=== PATIENT | male | born 1970 | race Caucasian/White ===

== ENCOUNTER 2020-11-14 13:19 | Emergency (ER) | payer OTHER, SELFPAY ==
--- NOTE | 2020-11-14 13:38 | XR_ITS ---
WS: [id number] Right knee, 3 views, 11/14/2020 Clinical Data: rt knee pain Comparison: None. Findings: No fractures or dislocations are seen. There is narrowing of the medial joint compartment with adjace nt calcifications probably in the medial collateral ligament.. The patella has a small posterior supe rior spur.. The soft tissues are unremarkable. XR/XR knee RT 3V* [id number] Impression: Osteoarthritis of the medial joint compartment of the right knee.
[2020-11-14 13:57] VITALS: BP 151/88; PULSE 69; RESP 18; TEMP 36.7; O2SAT 93; BMI 31.1
--- NOTE | 2020-11-14 14:43 | W.ED.EXTPRO ---
HPI - Extremity Problem General: Chief complaint: Extremity Injury, Lower Stated complaint: r knee pain Time Seen by Provider: 11/14/20 13:34 Source: patient and family (spouse) Mode of arrival: ambulatory Limitations: no limitations History of Present Illness: HPI Narrative: Patient presents to the emergency department with complaints of right knee pain. He reports pain past 2 to 3 days. Former anterior cruciate ligament injury early . He states call Dr. Dyer this morning for an appointment with follow-up scheduled for 03/04/2021. His states he continues to limp on his right knee favoring his left knee; she reports he has pain in his left knee as well and is requesting referral to specialty. He reports weakness of the right knee, states unable to utilize knee immobilizer as it puts pressure on his left knee, which needs surgery. Reports taking ibuprofen as needed for pain. He has no new injuries or trauma. MD Complaint: extremity pain Onset (ago): day(s) (2-3) Pain Consistency: intermittent Location: right and lower extremity Quality: aching Relieving factors: immobilization and rest Exacerbating factors: range of motion and weight bearing Associated symptoms: Reports arthralgias; Deny chest pain, fever(s) or rash Review of Systems General: Reports: 10 or more systems reviewed and unremarkable except in HPI and below Const: Denies: fever(s), chills or diaphoresis Eyes: Denies: blurry vision or eye redness ENMT: Denies: throat pain, dental pain or disequilibrium Card: Denies: chest pain, palpitations or irregular heart rhythm Resp: Denies: dyspnea, productive cough, non-productive cough or wheezing GI: Denies: abdominal pain, nausea or vomiting : Denies: dysuria Musc: Reports: joint pain (rt and lt knee - here for rt knee pain, left knee pain chronic); Denies: neck pain or back pain Skin/Breast: Denies: rash or pruritus Neuro: Denies: headache(s), weakness in extremities or behavioral changes Psych: Denies: anxiety or depression Bijan/Lymph: Denies: easy bruising [facility] ED PFSH: Medical History (Updated 11/14/20 @ 14:58 by RE Martínez) Right ACL tear Physical Exam Const: COMMON NORMALS: no acute distress, patient oriented x3, healthy appearing, alert and well nourished GENERAL APPEARANCE: cooperative, comfortable, well kempt, well developed and well hydrated ORIENTATION/CONSCIOUSNESS: Yes awake, Yes oriented to person, Yes oriented to place and Yes oriented to time HENMT: COMMON NORMALS: normocephalic, atraumatic, external ears normal, Normal external nose present and moist oral mucous membranes HEAD & SCALP: normocephalic and atraumatic FACE & SINUS: normal facial exam NOSE: Normal external nose present EXTERNAL EAR: Yes external ears normal MOUTH: Normal oral and palatal mucosa present and lip normal Eye: COMMON NORMALS: Equal, round and reactive pupils present and EOMs intact bilaterally GENERAL EYE: appearance normal, both eyes and all related structures PUPIL: Yes Equal, round and reactive pupils present Neck/C-Spine: COMMON NORMALS: full ROM and no lymphadenopathy GENERAL: Yes normal visual inspection and Yes trachea midline CERVICAL SPINE: Yes cervical ROM normal Lymph: LYMPHATIC: no lymphadenopathy noted Chest: COMMONS NORMALS: normal inspection of the chest and normal palpation of entire chest wall Resp: COMMON NORMALS: normal respiratory effort, No retractions, No use of accessory muscles and clear to auscultation bilaterally EFFORT & INSPECTION: Yes able to speak in complete sentences AUSCULTATION: clear to auscultation bilaterally Cardio: COMMON NORMALS: regular rate, regular rhythm, S1 normal heart sound present, S2 normal heart sound present and Peripheral pulses 2+ throughout RATE: regular rate RHYTHM: regular rhythm HEART SOUNDS: S1 normal heart sound present and S2 normal heart sound present PERIPHERAL PULSES: Peripheral pulses 2+ throughout GI: COMMON NORMALS: Soft to palpation and non-tender INSPECTION: Yes normal to inspection PALPATION: Yes Soft to palpation : COMMON NORMALS: Yes no CVA tenderness BLADDER/KIDNEY EXAM: Yes no CVA tenderness Back/Pelvis: COMMON NORMALS: no CVA tenderness and thoracic and lumbar spine normal to inspection Extremity: COMMON NORMALS: normal to inspection, full ROM, capillary refill normal, no calf tenderness and no pedal edema GENERAL: Yes normal exam except as noted RIGHT LOWER EXTREMITY: Yes knee joint Right knee: Yes inspection (medial narrowing), Yes palpation (anterior medial tenderness), Yes ROM (Flexion/extension noted, no restriction movement) and Yes neurovascular exam (Distally intact) Neuro: COMMON NORMALS: patient oriented x3 and no focal motor deficits SENSORIUM/ORIENTATION: Yes alert, Yes oriented to person, Yes oriented to place and Yes oriented to time Psych: COMMON NORMALS: mental status grossly normal, Normal thought process present and cooperative APPEARANCE: Yes well kempt ACTIVITY/MOTOR BEHAVIOR: Yes appropriate eye contact THOUGHT PROCESS: Normal thought process present Skin: COMMON NORMALS: no rashes or lesions noted and turgor normal GENERAL SKIN EXAM: no rashes or lesions noted and turgor normal Course ED course: 50-year-old male patient presents to the emergency room due to right knee pain. Referral for MRI right knee with follow-up with orthopedic services placed to mental health social worker to assist with appointments. He reports chronic right knee pain and left knee pain for years, worsening. He denies new recent trauma or injury, has an appointment with Dr. Turpin, his primary care provider on 11/20/2020. He was placed on Celebrex, advised not to take [id number] Aleve, ibuprofen or Advil with use of Celebrex. Vital Signs: Vital signs: Vital Signs Temperature 98.1 F 11/14/20 13:57 Pulse Rate 69 11/14/20 13:57 Respiratory Rate 18 11/14/20 13:57 Blood Pressure 151/88 11/14/20 13:57 Pulse Oximetry 93 11/14/20 13:57 MDM - Extremity (Nontraumatic) Imaging Data^: Xray Ortho: Radiologist's impression: [address] [address] XRay Report Signed Patient: Dudley Burns Unit #: [id number] : 1970 Age/Sex: 50 / M ADM Date: 11/14/20 Loc: ER Room/Bed: Attending Dr: Ordering Provider/Ordering MD: Sissy Hirsch Date of Service: 11/14/20 Procedure(s): XR knee RT 3V* [id number] Accession Number(s): [id number] Report Number: [id number] WS: [id number] Right knee, 3 views, 11/14/2020 Clinical Data: rt knee pain Comparison: None. Findings: No fractures or dislocations are seen. There is narrowing of the medial joint compartment with adjacent calcifications probably in the medial collateral ligament.. The patella has a small posterior superior spur.. The soft tissues are unremarkable. XR/XR knee RT 3V* [id number] Impression: Osteoarthritis of the medial joint compartment of the right knee. Dictated By: Tammy Mcdonough MD Signed By: Tammy Mcdonough MD Signed Date/Time: 11/14/20 1357 DD/ 1355 Discharge Plan Discharge Patient Disposition: Home Clinical Impression: Chronic instability of knee, right knee Knee osteoarthritis Qualifiers: Osteoarthritis type: primary Laterality: right Qualified Code(s): M17.11 - Unilateral primary osteoarthritis, right knee Condition: Stable Prescriptions: New Celebrex 100 mg capsule 100 mg PO BID Qty: 14 RF: 0 No Action venlafaxine 75 mg capsule,extended release 24hr 75 mg PO QAM RF: 0 alprazolam 1 mg tablet 0.5 - 1 mg PO TID PRN (Reason: Anxiety) RF: 0 Tylenol Arthritis 650 mg Tablet Extended Release 1,300 mg PO PRN RF: 0 testosterone cypionate 200 mg/mL oil See Rx Instructions .ROUTE .COMPLEX RF: 0 [place] Thyroid 30 mg tablet 30 mg PO DAILY@16 RF: 0 [place] Thyroid 180 mg tablet See Rx Instructions .ROUTE .COMPLEX RF: 0 Discharge Orders: Discharge ED (Routine); Ordered 11/14/20 Ordered By: Sissy Hirsch Referrals: Nathanael Dyer MD [Primary Care Provider] - Discharge Diet: Usual diet Discharge Activity: Limit activity as instructed Patient Instructions: Osteoarthritis (ED), Knee Pain (ED), Opioid Safety Activity Restrictions/Additional Instructions: Continue follow-up with Dr. Dyer as scheduled Referral to orthopedic services laced with mental health social worker, they will contact you with a follow-up appointment Referral for MRI of the right knee has been placed, mental health social worker will contact you with an appointment Take Celebrex with food to avoid upset stomach Return to the emergency department for other worsening symptoms Coding Level of Care Code ED Shaker Screen Operator for Wilver Luna
--- NOTE | 2020-11-15 10:20 | DCPLANNER ---
environmental compliance manager had message to schedule an out patient MRI for patient. environmental compliance manager faxed signed order for MRI to centralized scheduling. environmental compliance manager will call for appointment information.
--- NOTE | 2020-11-22 08:11 | DCPLANNER ---
Patient has an out patient MRI scheduled for Wednesday, December 02, 2020 at 8:45. behavioral health case manager called the ortho clinic to schedule a follow up appointment for patient with ortho after the MRI. behavioral health case manager spoke with Fadia, gave clinic patients information. behavioral health case manager was told that patients information would be printed and reviewed. Clinic will call patient with appointment information.
--- NOTE | 2020-11-26 08:12 | DCPLANNER ---
Patient has a follow up appointment scheduled for Thursday, December 03, 2020 at 9:[address] Degroot at [facility]. Clinic will call patient with appointment information.
--- NOTE | 2020-12-11 10:43 | DCPLANNER ---
Patient had an outpatient MRI scheduled for 12.02.20 - patient attended MRI Patient had a follow up appointment scheduled for 12.03.[address] Degroot at [facility] - appointment cancelled due to patient being seen somewhere else.
== END 2020-11-14 15:15 | disposition home or self-care (01) ==
PROVIDERS: Emergency Provider Nurse Practitioner Family; PCP Family Medicine
DX: M17.11 Unilateral primary osteoarthritis, right knee (principal); M23.51 Chronic instability of knee, right knee
CPT/HCPCS: 73562; 99282

== ENCOUNTER 2020-12-02 08:37 | Outpatient (CLI) | payer OTHER, SELFPAY ==
--- NOTE | 2020-12-02 08:43 | MR_ITS ---
WS: [id number] MRI RIGHT KNEE NONCONTRAST TECHNIQUE: Axial PD, coronal PD fat sat, coronal PD, sagittal PD, and sagittal PD fat-sat images obta ined. CLINICAL INFORMATION: DERANGEMENT SYNDROME/RT KNEE PAIN COMPARISON: None. FINDINGS: Distal quadriceps and patella tendons are intact. Hypertrophic patella. Small joint effusion. High-gr claudio complete ACL tear. No normal ACL fibers visualized. Normal PCL. Mild chondromalacia patella. No s ubchondral edema. Normal patellar retinaculum. Normal medial and lateral collateral ligaments. Subcho ndral cystic change involving the medial tibial plateau. Chronic thinning of the medial and lateral meniscus. No acute appearing meniscal tears. Likely chroni c medial meniscal tear with blunting of the anterior posterior horns. Hypertrophic changes along the joint line. IMPRESSION: 1. Complete high-grade tear of the ACL. No normal fibers visualized. 2. Normal PCL. 3. Chronic thinning of the medial and lateral meniscus. Presumed chronic medial meniscal tear with b lunting of anterior and posterior horns. No acute appearing meniscal tears. 4. Subchondral cystic change and chondromalacia involving the medial joint compartment and medial ti bial plateau. 5. Small joint effusion. 6. Mild chondromalacia patella.
== END 2020-12-02 08:38 | disposition home or self-care (01) ==
LOC: RADSHAW 08:42
PROVIDERS: PCP Family Medicine; Visit Provider Nurse Practitioner Family
DX: M23.91 Unspecified internal derangement of right knee (principal); M22.41 Chondromalacia patellae, right knee; M25.461 Effusion, right knee; S83.511A Sprain of anterior cruciate ligament of right knee, initial encounter; X58.XXXA Exposure to other specified factors, initial encounter
CPT/HCPCS: 73721

== ENCOUNTER 2021-02-12 13:13 | Emergency (ER) | payer OTHER, SELFPAY ==
[2021-02-12 13:15] VITALS: BP 164/105; PULSE 97; RESP 18; TEMP 36.7; O2SAT 98; BMI 32.5
--- NOTE | 2021-02-12 13:32 | W.ED.EXTPRO ---
HPI - Extremity Problem General: Chief complaint: Extremity Injury, Lower Stated complaint: POST KNEE SURGERY, WEAK PULSE, PAIN IN EXT Time Seen by Provider: 02/12/21 13:18 Source: patient Mode of arrival: ambulatory Limitations: no limitations History of Present Illness: HPI Narrative: Patient with increasing pain to the left thigh the past 2 days. Patient states he had a repair of the lateral meniscus at [facility] by Dr. Guido on February 08. Patient reports that he had quite a bit of bleeding and ecchymosis to the left thigh down to left foot. Patient states that this was much worse than now. Patient was placed on Xarelto due to a blood clot in either his left femoral vein or artery. Patient does not remember which was blocked. He states the ecchymosis has much improved than earlier. Patient is complaining of pain to the medial and anterior aspect of the left thigh. Denies any pain from the knee down. No claudication. Complaint: extremity pain and extremity swelling Onset (ago): day(s) (2) Pain Consistency: intermittent Location: left and other (Thigh) Quality: aching and other (Intermittent cramps in the left anterior thigh) Radiation: none Relieving factors: nothing Exacerbating factors: nothing Associated symptoms: Reports myalgias and other (Resolving ecchymosis to left lower extremity); Deny no associated symptoms, arthralgias, chest pain, fever(s) or short of breath Context: recent surgery/procedure Review of Systems Const: Denies: fever(s), chills, fatigue, malaise or diaphoresis Eyes: Denies: change in vision ENMT: Denies: throat pain Card: Reports: edema; Denies: chest pain, dyspnea on exertion or leg pain with exertion Resp: Denies: dyspnea or wheezing GI: Denies: abdominal pain, nausea or vomiting : Denies: flank pain Musc: Reports: extremity pain, extremity swelling and muscle cramps Skin/Breast: Reports: other (Ecchymoses from the left upper thigh down to left foot) Neuro: Denies: headache(s) or numbness in extremities Psych: Denies: anxiety Bijan/Lymph: Denies: enlarged lymph nodes PFSH ED PFSH: Medical History Right ACL tear Physical Exam Const: COMMON NORMALS: no acute distress, patient oriented x3, no limitations and well nourished EXAM LIMITATIONS: no altered mental status GENERAL APPEARANCE: cooperative HENMT: COMMON NORMALS: normocephalic and atraumatic HEAD & SCALP: normocephalic and atraumatic FACE & SINUS: normal facial exam Eye: COMMON NORMALS: EOMs intact bilaterally Neck/C-Spine: COMMON NORMALS: full ROM, no lymphadenopathy, supple and no meningeal signs GENERAL: Yes normal visual inspection Lymph: LYMPHATIC: no lymphadenopathy noted Chest: COMMONS NORMALS: normal inspection of the chest and normal palpation of entire chest wall CHEST: No Ecchymosis present and No rash Resp: COMMON NORMALS: normal respiratory effort, No retractions and clear to auscultation bilaterally EFFORT & INSPECTION: No respiratory distress AUSCULTATION: clear to auscultation bilaterally Cardio: COMMON NORMALS: regular rate, regular rhythm and Peripheral pulses 2+ throughout JUGULAR VENOUS DISTENTION: no JVD RATE: regular rate RHYTHM: regular rhythm PERIPHERAL PULSES: Peripheral pulses 2+ throughout GI: COMMON NORMALS: Normal to inspection, nondistended, normoactive bowel sounds present and non-tender : COMMON NORMALS: Yes no CVA tenderness BLADDER/KIDNEY EXAM: Yes no CVA tenderness Back/Pelvis: COMMON NORMALS: no CVA tenderness Extremity: COMMON NORMALS: normal to inspection, full ROM and capillary refill normal LEFT LOWER EXTREMITY: Yes upper leg (Minimal discomfort to left anterior mid thigh. No hematoma palpated.) and Yes lower leg (Patient has mild peripheral edema to the left lower extremity and left foot) OTHER: 2+ pitting edema of left lower leg and left foot. Capillary refill is normal. Dorsalis pedis and posterior tibial pulses are 2 out of 4 on the left. Neuro: COMMON NORMALS: patient oriented x3, CN's II-XII intact bilaterally, no focal motor deficits and no sensory deficits noted MENINGEAL SIGNS: Yes no meningeal signs Psych: COMMON NORMALS: mental status grossly normal and Normal thought process present THOUGHT PROCESS: Normal thought process present Skin: COMMON NORMALS: no rashes or lesions noted and no wounds GENERAL SKIN EXAM: no rashes or lesions noted Course Vital Signs: Vital signs: Vital Signs Temperature 98.1 F 02/12/21 13:15 Pulse Rate 85 02/12/21 16:18 Respiratory Rate 18 02/12/21 17:29 Blood Pressure 176/105 02/12/21 17:29 Pulse Oximetry 99 02/12/21 17:29 MDM - Extremity (Nontraumatic) MDM Narrative: Medical decision making narrative: I do not believe patient has compartment syndrome. However, we will order medical records to determine whether patient had a blocked artery or DVT. May need to order angiogram of left lower extremity if had arterial blockage. Patient is already on Xarelto.. Patient found to have a hematoma in the left thigh. Therefore, will have patient discontinue anticoagulant Xarelto. Differential Diagnosis: Extremity Problem Differential Diagnosis: Likely deep vein thrombosis of lower extremity Medical Records: Attestation: I reviewed the patient's medical records. Medical records narrative: I reviewed op report from Christie Kirkfield. There was no mention of his study on the left lower extremity as far as DVT or arterial occlusion. According to family patient had this study done in the clinic. Unable to get results from the clinic. Lab Data: Attestation: I reviewed the patient's lab results. Labs: Lab Results 02/12/21 02/12/21 02/12/21 Range/Units 13:50 13:50 13:50 WBC 10.0 (4.0-10.0) 10^3/ uL RBC 3.38 L (4.1-5.3) 10^6/u L Hgb 11.4 L (11.7-16.6) g/dL Hct 33.7 L (42.0-52.0) % MCV 99.7 H (80-94) fL MCH 33.7 (28.0-34.0) pg MCHC 33.8 (30.0-36.0) g/dL RDW 16.5 H (12.1-15.1) % Plt Count 251 (130-400) 10^3/c mm MPV 9.3 (7.4-10.4) fL Neut % (Auto) 78.7 % Lymph % (Auto) 8.8 % Lynn % (Auto) 10.7 % Eos % (Auto) 0.8 % Baso % (Auto) 0.3 % Neut # (Auto) 7.86 H (1.8-7.7) 10^3/u L Lymph # (Auto) 0.9 (0.8-4.8) 10^3/u L Lynn # (Auto) 1.1 H (0.2-0.9) 10^3/u L Eos # (Auto) 0.1 (0.0-0.8) 10^3/u L Baso # (Auto) 0.0 (0.0-0.1) 10^3/u L Nucleated RBC % (a uto) 0 % Nucleated RBCs # 0.0 /100WBC APTT 35.0 (23.9-36.7) SECO NDS Sodium 135 L (136-145) mmol/L Potassium 4.0 (3.5-5.1) mmol/L Chloride 101 (98-107) mmol/L Carbon Dioxide 25 (22-29) mmol/L Anion Gap 13.0 (5-19) BUN 14 (6-20) mg/dL Creatinine 0.8 (0.7-1.2) mg/dL GFR Calculation 102.3 (90-130) mL/min Glucose 98 (65-115) mg/dL Calculated Osmolal ity 280 L (285-295) mOsm/k g Calcium 8.7 (8.5-10.5) mg/dL Total Bilirubin 1.0 (0.15-1.2) mg/dL AST 32 (0-40) U/L ALT 56 H (0-41) U/L Alkaline Phosphata se 62 (40-130) IU/L Total Protein 6.4 L (6.6-8.7) g/dL Albumin 3.8 (3.5-5.2) g/dL Globulin 2.6 (1.3-4.6) g/dL Imaging Data^: Other Imaging: Radiologist's impression: [address] Dodd MD Find Patient RAD - Dudley Burns 1970 ACTIVITY DATE EXAM STATUS AUTHOR 02/12/21 15:36 Signed Raul,Abhilash Najera[address] [address]LC Scan ReportSigned Patient: Dudley Burns #: [id number]: 1970Acct#:[id number]/Sex: 50 / MADM Date: 02/12/21Loc: ERRoom/Bed:Attending Dr: Ordering Provider/Ordering MD: Ga Dodd MD Date of Service: 02/12/21 Procedure(s): [place] [address] Accession Number(s): [id number] Report Number: [id number] PROCEDURE INFORMATION: Exam: CTA Left Lower Extremity With Contrast Exam date and time: 02/12/2021 3:36 PM Age: 50 years old Clinical indication: Swelling, leg or foot; Prior surgery; Surgery type: Pain and swelling of left thigh x this am; Additional info: L thigh pain with possible arterial blockage, post left knee surgery on February 08; Reported arterial^blockage in the left thigh. TECHNIQUE: Imaging protocol: Computed tomographic angiography of the Left lower extremity with intravenous contrast. 3D rendering (Not supervised by radiologist): MIP and/or 3D reconstructed images were created by the technologist. Radiation optimization: All CT scans at this facility use at least one of these dose optimization techniques: automated exposure control; mA and/or kV adjustment per patient size (includes targeted exams where dose is matched to clinical indication); or iterative reconstruction. Contrast material: OMNI 350; Contrast volume: 95 ml; Contrast route: INTRAVENOUS (IV); COMPARISON: [facility] [place] LEFT 3 views 10/26/2014 4:15 PM RADIATION DOSE METRICS: Total DLP (mGy-cm): 1383.07 FINDINGS: Left femoral/popliteal arteries: No occlusion or significant stenosis. Left infrapopliteal arteries: No occlusion or significant stenosis. Bones/joints: Hemarthrosis of the left knee joint space. No extremity fractures or lytic bone lesions. Soft tissues: Large intramuscular hematoma within the deep left quadriceps musculature. No active bleeding in the soft tissues. Diffuse subcutaneous soft tissue edema changes of the left leg. [place] [address] IMPRESSION: 1. No lower extremity arterial injury or occlusion. 2. Large left quadriceps intramuscular hematoma. 3. Large left knee joint hemarthrosis. Radiation Dose CTDIVOL = (mGy): DLP = 1383.07 (mGy-cm) Dictated By:Gerson CarterinSigned By:Raul,KevinSigned Date/Time:02/12/21 3314 Discharge Plan Discharge Patient Disposition: Home Clinical Impression: Hematoma of left thigh Qualifiers: Encounter type: initial encounter Qualified Code(s): S70.12XA - Contusion of left thigh, initial encounter Condition: Stable Prescriptions: New oxycodone-acetaminophen 5-325 mg tablet 1 tab PO Q6H PRN (Reason: pain) Qty: 20 RF: 0 cyclobenzaprine 10 mg tablet 10 mg PO TID PRN (Reason: muscle spasm) Qty: 15 RF: 1 No Action venlafaxine 75 mg capsule,extended release 24hr 75 mg PO DAILY RF: 0 alprazolam 1 mg tablet 0.5 - 1 mg PO TID PRN (Reason: Anxiety) RF: 0 acetaminophen [Tylenol Arthritis] 650 mg Tablet Extended Release 1,300 mg PO PRN RF: 0 testosterone cypionate 200 mg/mL oil See Rx Instructions .ROUTE .COMPLEX RF: 0 thyroid (pork) [[place] Thyroid] 30 mg tablet 30 mg PO DAILY@16 RF: 0 [place] Thyroid 180 mg tablet See Rx Instructions .ROUTE .COMPLEX RF: 0 oxycodone-acetaminophen 5-325 mg tablet 1 tab PO Q4H PRN (Reason: Pain) RF: 0 diazepam 5 mg tablet See Rx Instructions .ROUTE .COMPLEX RF: 0 Xarelto 15 mg tablet 15 mg PO BID RF: 0 Xarelto 20 mg tablet 20 mg PO DAILY RF: 0 Discharge Orders: Discharge ED (Routine); Ordered 02/12/21 Ordered By: Ga Dodd Referrals: Nathanael Dyer MD [Primary Care Provider] - Discharge Diet: Advance as tolerated and Usual diet Discharge Activity: Limit activity as instructed and Use walker/crutches as instructed Patient Instructions: Contusion in Adults (ED), Opioid Safety Activity Restrictions/Additional Instructions: Discontinue Xarelto anticoagulant. Continue light activity. Use a walker or crutches to get around. Return if worse. Oxycodone is being refilled. May take cyclobenzaprine for muscle spasms. May try warm compresses to left thigh while awake. Coding Level of Care Code ED Valet Manager for Wilver Fwara Exam Comprehensive
[2021-02-12 13:59] LABS: Basophils % 0.3 %; Eosinophils # 0.1 10^3/uL (0.0-0.8); Eosinophils % 0.8 %; Hematocrit 33.7 % (42.0-52.0); Hemoglobin 11.4 g/dL (11.7-16.6); Lymphocytes # 0.9 10^3/uL (0.8-4.8); Lymphocytes % 8.8 %; Mean Corpuscular HGB Conc 33.8 g/dL (30.0-36.0); Mean Corpuscular Hemoglobin 33.7 pg (28.0-34.0); Mean Corpuscular Volume 99.7 fL (80-94); Mean Platelet Volume 9.3 fL (7.4-10.4); Monocytes # 1.1 10^3/uL (0.2-0.9); Monocytes % 10.7 %; Neutrophils # 7.86 10^3/uL (1.8-7.7); Neutrophils % 78.7 %; Nucleated Red Blood Cells % 0 %; Platelet Count 251 10^3/cmm (130-400); Red Blood Count 3.38 10^6/uL (4.1-5.3); Red Cell Distribution Width 16.5 % (12.1-15.1)
[2021-02-12 14:16] LABS: Alanine Aminotransferase 56 U/L (0-41); Albumin Level 3.8 g/dL (3.5-5.2); Alkaline Phosphatase 62 IU/L (40-130); Aspartate Amino Transferase 32 U/L (0-40); Blood Urea Nitrogen 14 mg/dL (6-20); Calcium 8.7 mg/dL (8.5-10.5); Carbon Dioxide 25 mmol/L (22-29); Chloride 101 mmol/L (98-107); Globulin 2.6 g/dL (1.3-4.6); Glomerular Filtration Rate 102.3 mL/min (90-130); Glucose 98 mg/dL (65-115); Osmolality Calculated 280 mOsm/kg (285-295); Sodium 135 mmol/L (136-145); Total Protein 6.4 g/dL (6.6-8.7)
[2021-02-12] MEDS: HYDROmorphone 1 mg/mL INJ 1 mL 0.5 MG IVP ×2 (14:35→17:29)
[2021-02-12] MEDS: ondansetron 2 mg/ML SDV 2 mL 4 MG IVP (14:35)
--- NOTE | 2021-02-12 15:36 | CTR_ITS ---
PROCEDURE INFORMATION: Exam: CTA Left Lower Extremity With Contrast Exam date and time: 02/12/2021 3:36 PM Age: 50 years old Clinical indication: Swelling, leg or foot; Prior surgery; Surgery type: Pain and swelling of left thigh x this am; Additional info: L thigh pain with possible arterial blockage, post left knee surgery on February 08; Reported arterial^blockage in the left thigh. TECHNIQUE: Imaging protocol: Computed tomographic angiography of the Left lower extremity with intravenous contrast. 3D rendering (Not supervised by radiologist): MIP and/or 3D reconstructed images were created by the technologist. Radiation optimization: All CT scans at this facility use at least one of these dose optimization techniques: automated exposure control; mA and/or kV adjustment per patient size (includes targeted exams where dose is matched to clinical indication); or iterative reconstruction. Contrast material: OMNI 350; Contrast volume: 95 ml; Contrast route: INTRAVENOUS (IV); COMPARISON: CR [facility] [place] Foot LEFT 3 views 10/26/2014 4:15 PM RADIATION DOSE METRICS: Total DLP (mGy-cm): 1383.07 FINDINGS: Left femoral/popliteal arteries: No occlusion or significant stenosis. Left infrapopliteal arteries: No occlusion or significant stenosis. Bones/joints: Hemarthrosis of the left knee joint space. No extremity fractures or lytic bone lesions. Soft tissues: Large intramuscular hematoma within the deep left quadriceps musculature. No active bleeding in the soft tissues. Diffuse subcutaneous soft tissue edema changes of the left leg. CT/CT angio [facility] [address] IMPRESSION: 1. No lower extremity arterial injury or occlusion. 2. Large left quadriceps intramuscular hematoma. 3. Large left knee joint hemarthrosis. Radiation Dose CTDIVOL = (mGy): DLP = 1383.07 (mGy-cm)
[2021-02-12] MEDS: orphenadrine 30 mg/mL Inj 2 mL IVP (16:07)
[2021-02-12] MEDS: iohexol 350 mg/mL 100 mL Btl IV (16:14)
[2021-02-12 16:18] VITALS: PULSE 85; RESP 16; O2SAT 97
[2021-02-12 17:29] VITALS: BP 176/105; RESP 18; O2SAT 99
== END 2021-02-12 18:13 | disposition home or self-care (01) ==
PROVIDERS: Emergency Provider Family Medicine; PCP Family Medicine
DX: S70.12XA Contusion of left thigh, initial encounter (principal); Y83.9 Surgical procedure, unspecified as the cause of abnormal reaction of the patient, or of later complication, without mention of misadventure at the time of the procedure
CPT/HCPCS: 73706; 80053; 85025; 85730; 96374; 96375; 96376; 99283; J1170; J2360; J2405; Q9967

== ENCOUNTER 2021-05-08 17:03 | Emergency (ER) | payer OTHER, SELFPAY ==
[2021-05-08 17:08] VITALS: BP 126/77; PULSE 69; RESP 20; O2SAT 100; BMI 31.1
--- NOTE | 2021-05-08 17:17 | XRR_ITS ---
PROCEDURE INFORMATION: Exam: XR Chest Exam date and time: 05/08/2021 5:17 PM Age: 51 years old Clinical indication: Cough and shortness of breath; Patient HX: Post covid; Additional info: Dyspnea/cough TECHNIQUE: Imaging protocol: XR of the chest. Views: 1 view. Total images: 1 COM[place] [facility] [place] 2 [place] 08/25/2014 3:09 PM FINDINGS: Lungs: No visible active interstitial or alveolar airspace disease. Pleural spaces: Unremarkable. No pleural effusion. No pneumothorax. Heart/Mediastinum: Unremarkable. No cardiomegaly. Bones/joints: Unremarkable. XR/XR chest 1V portable [id number] IMPRESSION: Nonacute.
--- NOTE | 2021-05-08 17:17 | CTR_ITS ---
PROCEDURE INFORMATION: Exam: CTA Chest With Contrast Exam date and time: 05/08/2021 5:17 PM Age: 51 years old Clinical indication: Cough and shortness of breath; Patient HX: Post covid; Additional info: Dyspnea TECHNIQUE: Imaging protocol: Computed tomographic angiography of the chest with contrast. 3D rendering (Not supervised by radiologist): MIP and/or 3D reconstructed images were created by the technologist. Total images: 930 Radiation optimization: All CT scans at this facility use at least one of these dose optimization techniques: automated exposure control; mA and/or kV adjustment per patient size (includes targeted exams where dose is matched to clinical indication); or iterative reconstruction. Contrast material: OMNI 350; Contrast volume: 74 ml; Contrast route: INTRAVENOUS (IV); COMPARISON: CR (CHEST, ) 05/08/2021 5:54 PM RADIATION DOSE METRICS: Total DLP (mGy-cm): 620.45 FINDINGS: Pulmonary arteries: No visible evidence of pulmonary embolism/pulmonary arterial thrombus. Aorta: The thoracic aorta is nonaneurysmal. No visible intimal flap or dissection. Minimal arterial sclerotic disease. Lungs: Rare small patches of ground-glass interstitial lung disease bilaterally suggesting low-grade active interstitial pneumonitis. Pattern would be consistent with mild Covid-19 pneumonitis. Pleural spaces: Unremarkable. No pneumothorax. No pleural effusion. Heart: No cardiomegaly. No visible pericardial effusion. Mild coronary artery disease. Lymph nodes: No visible active mediastinal or hilar lymphadenopathy. Bones/joints: No visible active or acute osseous pathology. Mild scoliotic curvature. Soft tissues: Unremarkable. CT/CT angio chest PE protcl [id number] IMPRESSION: 1. No visible evidence of pulmonary embolism/pulmonary arterial thrombus. 2. Rare small patches of ground-glass interstitial lung disease bilaterally suggesting low-grade active interstitial pneumonitis. Pattern would be consistent with mild Covid-19 pneumonitis. 3. Mild coronary disease. Radiation Dose CTDIVOL = (mGy): DLP = 620.45 (mGy-cm)
--- NOTE | 2021-05-08 17:25 | ED_ITS ---
Documented by User: Karan Cade DO 05/09/21 06:35 HPI - General Adult General: Chief complaint: General Medical Stated complaint: HYPOGLYCEMIA Time Seen by Provider: 05/08/21 17:05 History of Present Illness: HPI narrative: 51-year-old male presents emergency room via EMS. Patient tested positive for Covid around 910. He seemed to be relatively asymptomatic and this morning he was extremely short of breath even somewhat confused at times. His notices oxygen desats were low EMS was called because of his confusion. On the scene they are reporting was hypoglycemic with blood sugar of 66 he was given D5 and a repeat Accu-Chek was 147 he is awake and alert oriented now sats normal he did have some chest pain earlier as well and felt very short of breath. Yesterday did not have any of the symptoms. Patient is not a known diabetic he is not on any antihyperglycemics.According to records in chart patient orthopedic procedure in late January resulting in a DVT in his left leg for which she was started on Xarelt o. Onset (ago): hour(s) Relieving factors: none Exacerbating factors: none Associated symptoms: Deny chest pain, confusion, cough, diaphoresis, decreased appetite, dyspnea, fevers/chills, headache(s), malaise, nausea, rash, palpitations, seizures, short of breath, syncope, vomiting or weakness Treatments prior to arrival: none Review of Systems Const: Denies: malaise or diaphoresis ENMT: Denies: throat pain, ear or mastoid pain, nasal discharge or nasal congestion Card: Denies: chest pain, palpitations or syncope Resp: Denies: dyspnea, productive cough or non-productive cough GI: Denies: nausea or vomiting : Denies: flank pain, dysuria, urinary frequency or urinary urgency Skin/Breast: Denies: rash Neuro: Denies: headache(s) or confusion PFSH ED PFSH: Medical History Right ACL tear Physical Exam Const: COMMON NORMALS: no acute distress GENERAL APPEARANCE: cooperative and comfortable ORIENTATION/CONSCIOUSNESS: Yes awake, Yes oriented to person, Yes oriented to place and Yes oriented to time HENMT: COMMON NORMALS: normocephalic, atraumatic, hearing grossly normal b ilaterally and external ears normal HEAD & SCALP: normocephalic and atraumatic EXTERNAL EAR: Yes external ears normal Neck/C-Spine: COMMON NORMALS: no JVD Lymph: LYMPHATIC: no lymphadenopathy noted and no lymphedema noted Resp: COMMON NORMALS: normal respiratory effort, No retractions, No use of accessory muscles and clear to auscultation bilaterally AUSCULTATION: clear to auscultation bilaterally Cardio: COMMON NORMALS: no JVD, regular rate, regular rhythm and No murmurs pr esent (Cardio) RATE: regular rate RHYTHM: regular rhythm GI: COMMON NORMALS: Soft to palpation and No hepatosplenomegaly present AUSCULTATION: Yes normoactive bowel sounds PALPATION: Yes Soft to palpation, No Tenderness to palpation present (GI), No Guarding due to palpation present (GI) and Yes No hepatosplenomegaly present Extremity: COMMON NORMALS: normal to inspection, capillary refill normal, no clubbing, cyanosis or edema, no calf tenderness and no pedal edema Neuro: SENSORIUM/ORIENTATION: Yes oriented to person, Yes oriented to place and Yes oriented to time Skin: COMMON NORMALS: no rashes or lesions noted GENERAL SKIN EXAM: no rashes or lesions noted Course Vital Signs: Vital signs: Vital Signs Pulse Rate 78 05/08/21 20:19 Respiratory Rate 20 H 05/08/21 17:08 Blood Pressure 152/91 05/08/21 21:07 Pulse Oximetry 97 05/08/21 20:19 MDM - General Adult MDM Narrative: Medical decision making narrative: Laboratory tests and imaging are pending.Care turned over to Dr. Bateman at change of shift see his notes for final diagnosis and disposition. Lab Data: Labs: Lab Results 05/08/21 05/08/21 05/08/21 17:23 17:23 17:29 WBC 7.2 10^3/uL 10^3/ uL (4.0-10.0) RBC 5.72 10^6/uL H 10 ^6/uL (4.1-5.3) Hgb 18.7 g/dL H g/dL (11.7-16.6) Hct 55.4 % H % (42.0-52.0) MCV 96.9 fl H fl (80-94) MCH 32.7 pg pg (28.0-34.0) MCHC 33.8 g/dL g/dL (30.0-36.0) RDW 14.1 % % (12.1-15.1) Plt Count 224 10^3/cmm 10^3 /cmm (130-400) MPV 10.8 fL H fL (7.4-10.4) Neut % (Auto) 62.4 % % Lymph % (Auto) 26.3 % % Graham % (Auto) 9.4 % % Eos % (Auto) 1.3 % % Baso % (Auto) 0.3 % % Neut # (Auto) 4.50 10^3/uL 10^3 /uL (1.8-7.7) Lymph # (Auto) 1.9 10^3/uL 10^3/ uL (0.8-4.8) Graham # (Auto) 0.7 10^3/uL 10^3/ uL (0.2-0.9) Eos # (Auto) 0.1 10^3/uL 10^3/ uL (0.0-0.8) Baso # (Auto) 0.0 10^3/uL 10^3/ uL (0.0-0.1) Nucleated RBC % (a uto) 0 % % Nucleated RBCs # 0.0 /100WBC /100W BC Sodium 137 mmol/L mmol/L (136-145) Potassium 4.1 mmol/L mmol/L (3.5-5.1) Chloride 95 mmol/L L mmol/ L (98-107) Carbon Dioxide 18 mmol/L L mmol/ L (22-29) Anion Gap 28.1 H (5-19) BUN 11 mg/dL mg/dL (6-20) Creatinine 0.9 mg/dL mg/dL (0.7-1.2) GFR Calculation 89.0 mL/min L mL/ min (90-130) Glucose 58 mg/dL L mg/dL (65-115) POC Glucose 117 mg/dL H mg/dL (70-110) Calculated Osmolal ity 281 mOsm/kg L mOs m/kg (285-295) Lactate Calcium 9.7 mg/dL mg/dL (8.5-10.5) Total Bilirubin 0.8 mg/dL mg/dL (0.15-1.2) AST 48 U/L H U/L (0-40) ALT 65 U/L H U/L (0-41) Alkaline Phosphata se 91 IU/L IU/L (40-130) Total Protein 8.5 g/dL g/dL (6.6-8.7) Albumin 4.8 g/dL g/dL (3.5-5.2) Globulin 3.7 g/dL g/dL (1.3-4.6) Procalcitonin 0.05 ng/mL ng/mL (0-0.5) 05/08/21 05/08/21 19:31 20:29 WBC RBC Hgb Hct MCV MCH MCHC RDW Plt Count MPV Neut % (Auto) Lymph % (Auto) Graham % (Auto) Eos % (Auto) Baso % (Auto) Neut # (Auto) Lymph # (Auto) Graham # (Auto) Eos # (Auto) Baso # (Auto) Nucleated RBC % (a uto) Nucleated RBCs # Sodium 134 mmol/L L mmol /L (136-145) Potassium 4.1 mmol/L mmol/L (3.5-5.1) Chloride 98 mmol/L mmol/L (98-107) Carbon Dioxide 24 mmol/L mmol/L (22-29) Anion Gap 16.1 (5-19) BUN 12 mg/dL mg/dL (6-20) Creatinine 0.9 mg/dL mg/dL (0.7-1.2) GFR Calculation 89.0 mL/min L mL/ min (90-130) Glucose 92 mg/dL mg/dL (65-115) POC Glucose Calculated Osmolal ity 277 mOsm/kg L mOs m/kg (285-295) Lactate 1.9 mmol/L mmol/L (0.5-2.2) Calcium 8.3 mg/dL L mg/dL (8.5-10.5) Total Bilirubin AST ALT Alkaline Phosphata se Total Protein Albumin Globulin Procalcitonin Discharge Plan Discharge Patient Disposition: Home Clinical Impression: Confusion Condition: Stable Prescriptions: No Action alprazolam 1 mg tablet 0.5 - 1 mg PO TID PRN (Reason: Anxiety) RF: 0 acetaminophen [Tylenol Arthritis] 650 mg Tablet Extended Release 1,300 mg PO PRN RF: 0 testosterone cypionate 200 mg/mL oil See Rx Instructions .ROUTE .COMPLEX RF: 0 thyroid (pork) [Victoria Thyroid] 30 mg tablet 30 mg PO DAILY@16 RF: 0 Victoria Thyroid 180 mg tablet See Rx Instructions .ROUTE .COMPLEX RF: 0 cyclobenzaprine 10 mg tablet 10 mg PO TID PRN (Reason: muscle spasm) Qty: 15 RF: 1 venlafaxine 225 mg Tablet Extended Release 24hr 225 mg PO DAILY RF: 0 Discharge Orders: Discharge ED (Routine); Ordered 05/08/21 Ordered By: Adam Bateman Referrals: Nathanael Dyer MD [Primary Care Provider] - 1-3 days Discharge Diet: Advance as tolerated Discharge Activity: Resume usual activity Patient Instructions: Weakness (ED) Coding Level of Care Code ED Registered Nurses for Chg Fwd Exam Comprehensive Documented by User: Adam Bateman MD 05/08/21 21:00 HPI - General Adult General: Chief complaint: General Medical Stated complaint: HYPOGLYCEMIA Time Seen by Provider: 05/08/21 17:05 [facility] ED PFSH: Medical History Right ACL tear Course Vital Signs: Vital signs: Vital Signs Pulse Rate 78 05/08/21 20:19 Respiratory Rate 20 H 05/08/21 17:08 Blood Pressure 152/91 05/08/21 21:07 Pulse Oximetry 97 05/08/21 20:19 MDM - General Adult MDM Narrative: Medical decision making narrative: Patient presents with confusion that since resolved. He did have a little hypoglycemia initially and some dehydration. Patient here states he feels much improved. He states that he believes he overdid it yesterday. 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 Patient's anion gap is closed with IV fluids and he is eating and drinking. He is stable for discharge is to follow-up his PCP and return if worsening. Lab Data: Labs: Lab Results 09/05/08/21 05/08/21 17:23 17:23 17:29 WBC 7.2 10^3/uL 10^3/ uL (4.0-10.0) RBC 5.72 10^6/uL H 10 ^6/uL (4.1-5.3) Hgb 18.7 g/dL H g/dL (11.7-16.6) Hct 55.4 % H % (42.0-52.0) MCV 96.9 fl H fl (80-94) MCH 32.7 pg pg (28.0-34.0) MCHC 33.8 g/dL g/dL (30.0-36.0) RDW 14.1 % % (12.1-15.1) Plt Count 224 10^3/cmm 10^3 /cmm (130-400) MPV 10.8 fL H fL (7.4-10.4) Neut % (Auto) 62.4 % % Lymph % (Auto) 26.3 % % Graham % (Auto) 9.4 % % Eos % (Auto) 1.3 % % Baso % (Auto) 0.3 % % Neut # (Auto) 4.50 10^3/uL 10^3 /uL (1.8-7.7) Lymph # (Auto) 1.9 10^3/uL 10^3/ uL (0.8-4.8) Graham # (Auto) 0.7 10^3/uL 10^3/ uL (0.2-0.9) Eos # (Auto) 0.1 10^3/uL 10^3/ uL (0.0-0.8) Baso # (Auto) 0.0 10^3/uL 10^3/ uL (0.0-0.1) Nucleated RBC % (a uto) 0 % % Nucleated RBCs # 0.0 /100WBC /100W BC Sodium 137 mmol/L mmol/L (136-145) Potassium 4.1 mmol/L mmol/L (3.5-5.1) Chloride 95 mmol/L L mmol/ L (98-107) Carbon Dioxide 18 mmol/L L mmol/ L (22-29) Anion Gap 28.1 H (5-19) BUN 11 mg/dL mg/dL (6-20) Creatinine 0.9 mg/dL mg/dL (0.7-1.2) GFR Calculation 89.0 mL/min L mL/ min (90-130) Glucose 58 mg/dL L mg/dL (65-115) POC Glucose 117 mg/dL H mg/dL (70-110) Calculated Osmolal ity 281 mOsm/kg L mOs m/kg (285-295) Lactate Calcium 9.7 mg/dL mg/dL (8.5-10.5) Total Bilirubin 0.8 mg/dL mg/dL (0.15-1.2) AST 48 U/L H U/L (0-40) ALT 65 U/L H U/L (0-41) Alkaline Phosphata se 91 IU/L IU/L (40-130) Total Protein 8.5 g/dL g/dL (6.6-8.7) Albumin 4.8 g/dL g/dL (3.5-5.2) Globulin 3.7 g/dL g/dL (1.3-4.6) Procalcitonin 0.05 ng/mL ng/mL (0-0.5) 05/08/21 05/08/21 19:31 20:29 WBC RBC Hgb Hct MCV MCH MCHC RDW Plt Count MPV Neut % (Auto) Lymph % (Auto) Graham % (Auto) Eos % (Auto) Baso % (Auto) Neut # (Auto) Lymph # (Auto) Graham # (Auto) Eos # (Auto) Baso # (Auto) Nucleated RBC % (a uto) Nucleated RBCs # Sodium 134 mmol/L L mmol /L (136-145) Potassium 4.1 mmol/L mmol/L (3.5-5.1) Chloride 98 mmol/L mmol/L (98-107) Carbon Dioxide 24 mmol/L mmol/L (22-29) Anion Gap 16.1 (5-19) BUN 12 mg/dL mg/dL (6-20) Creatinine 0.9 mg/dL mg/dL (0.7-1.2) GFR Calculation 89.0 mL/min L mL/ min (90-130) Glucose 92 mg/dL mg/dL (65-115) POC Glucose Calculated Osmolal ity 277 mOsm/kg L mOs m/kg (285-295) Lactate 1.9 mmol/L mmol/L (0.5-2.2) Calcium 8.3 mg/dL L mg/dL (8.5-10.5) Total Bilirubin AST ALT Alkaline Phosphata se Total Protein Albumin Globulin Procalcitonin Imaging Data^: CT Chest: Radiologist's impression: [facility] [place] [address] [place] [address] CT Scan Report Signed Patient: Dudley Burns Unit #: [id number] : 1970 ct#:[id number] Age/Sex: 51 / M ADM Date: 05/08/21 Loc: ER Room/Bed: Attending Dr: Ordering Provider/Ordering MD: Karan Cade DO Date of Service: 05/08/21 Procedure(s): CT angio chest PE protcl [id number] Accession Number(s): [id number] Report Number: [id number] PROCEDURE INFORMATION: Exam: CTA Chest With Contrast Exam date and time: 05/08/2021 5:17 PM Age: 51 years old Clinical indication: Cough and shortness of breath; Patient HX: Post covid; Additional info: Dyspnea TECHNIQUE: Imaging protocol: Computed tomographic angiography of the chest with contrast. 3D rendering (Not supervised by radiologist): MIP and/or 3D reconstructed images were created by the technologist. Total images: 930 Radiation optimization: All CT scans at this facility use at least one of these dose optimization techniques: automated exposure control; mA and/or kV adjustment per patient size (includes targeted exams where dose is matched to clinical indication); or iterative reconstruction. Contrast material: OMNI 350; Contrast volume: 74 ml; Contrast route: INTRAVENOUS (IV); COMPARISON: CR (CHEST, ) 05/08/2021 5:54 PM RADIATION DOSE METRICS: Total DLP (mGy-cm): 620.45 FINDINGS: Pulmonary arteries: No visible evidence of pulmonary embolism/pulmonary arterial thrombus. Aorta: The thoracic aorta is nonaneurysmal. No visible intimal flap or dissection. Minimal arterial sclerotic disease. Lungs: Rare small patches of ground-glass interstitial lung disease bilaterally suggesting low-grade active interstitial pneumonitis. Pattern would be consistent with mild Covid-19 pneumonitis. Pleural spaces: Unremarkable. No pneumothorax. No pleural effusion. Heart: No cardiomegaly. No visible pericardial effusion. Mild coronary artery disease. Lymph nodes: No visible active mediastinal or hilar lymphadenopathy. Bones/joints: No visible active or acute osseous pathology. Mild scoliotic curvature. Soft tissues: Unremarkable. CT/CT angio chest PE protcl [id number] IMPRESSION: 1. No visible evidence of pulmonary embolism/pulmonary arterial thrombus. 2. Rare small patches of ground-glass interstitial lung disease bilaterally suggesting low-grade active interstitial pneumonitis. Pattern would be consistent with mild Covid-19 pneumonitis. 3. Mild coronary disease. Discharge Plan Discharge Patient Disposition: Home Clinical Impression: Confusion Condition: Stable Prescriptions: No Action alprazolam 1 mg tablet 0.5 - 1 mg PO TID PRN (Reason: Anxiety) RF: 0 acetaminophen [Tylenol Arthritis] 650 mg Tablet Extended Release 1,300 mg PO PRN RF: 0 testosterone cypionate 200 mg/mL oil See Rx Instructions .ROUTE .COMPLEX RF: 0 thyroid (pork) [Victoria Thyroid] 30 mg tablet 30 mg PO DAILY@16 RF: 0 Victoria Thyroid 180 mg tablet See Rx Instructions .ROUTE .COMPLEX RF: 0 cyclobenzaprine 10 mg tablet 10 mg PO TID PRN (Reason: muscle spasm) Qty: 15 RF: 1 venlafaxine 225 mg Tablet Extended Release 24hr 225 mg PO DAILY RF: 0 Discharge Orders: Discharge ED (Routine); Ordered 05/08/21 Ordered By: Adam Bateman Referrals: Nathanael Dyer MD [Primary Care Provider] - 1-3 days Discharge Diet: Advance as tolerated Discharge Activity: Resume usual activity Patient Instructions: Weakness (ED) Coding Level of Care Code ED Registered Nurses for Chg Fwd Exam Comprehensive
[2021-05-08 17:28] LABS: Basophils % 0.3 %; Eosinophils # 0.1 10^3/uL (0.0-0.8); Eosinophils % 1.3 %; Hematocrit 55.4 % (42.0-52.0); Hemoglobin 18.7 g/dL (11.7-16.6); Lymphocytes # 1.9 10^3/uL (0.8-4.8); Lymphocytes % 26.3 %; Mean Corpuscular HGB Conc 33.8 g/dL (30.0-36.0); Mean Corpuscular Hemoglobin 32.7 pg (28.0-34.0); Mean Corpuscular Volume 96.9 fl (80-94); Mean Platelet Volume 10.8 fL (7.4-10.4); Monocytes # 0.7 10^3/uL (0.2-0.9); Monocytes % 9.4 %; Neutrophils % 62.4 %; Nucleated Red Blood Cells % 0 %; Platelet Count 224 10^3/cmm (130-400); Red Blood Count 5.72 10^6/uL (4.1-5.3); Red Cell Distribution Width 14.1 % (12.1-15.1); White Blood Count 7.2 10^3/uL (4.0-10.0)
[2021-05-08 17:32] LABS: Glucose Point of Care 117 mg/dL (70-110)
[2021-05-08] MEDS: iohexol 350 mg/mL 100 mL Btl IV (18:01)
[2021-05-08 18:18] LABS: Procalcitonin 0.05 ng/mL (0-0.5)
[2021-05-08 18:30] LABS: Alanine Aminotransferase 65 U/L (0-41); Albumin Level 4.8 g/dL (3.5-5.2); Alkaline Phosphatase 91 IU/L (40-130); Anion Gap 28.1 (5-19); Aspartate Amino Transferase 48 U/L (0-40); Blood Urea Nitrogen 11 mg/dL (6-20); Calcium 9.7 mg/dL (8.5-10.5); Carbon Dioxide 18 mmol/L (22-29); Chloride 95 mmol/L (98-107); Globulin 3.7 g/dL (1.3-4.6); Glucose 58 mg/dL (65-115); Osmolality Calculated 281 mOsm/kg (285-295); Potassium 4.1 mmol/L (3.5-5.1); Sodium 137 mmol/L (136-145); Total Bilirubin 0.8 mg/dL (0.15-1.2); Total Protein 8.5 g/dL (6.6-8.7)
[2021-05-08 19:51] LABS: Lactate (Lactic Acid level) 1.9 mmol/L (0.5-2.2)
[2021-05-08] MEDS: sodium chloride 0.9% 1,000 ML 999 ML IV ×2 (19:52→20:02)
[2021-05-08 20:19] VITALS: BP 158/93; PULSE 78; O2SAT 97
[2021-05-08 20:53] LABS: Blood Urea Nitrogen 12 mg/dL (6-20); Calcium 8.3 mg/dL (8.5-10.5); Carbon Dioxide 24 mmol/L (22-29); Chloride 98 mmol/L (98-107); Glucose 92 mg/dL (65-115); Osmolality Calculated 277 mOsm/kg (285-295); Sodium 134 mmol/L (136-145)
[2021-05-08 20:56] LABS: Anion Gap 16.1 (5-19); Potassium 4.1 mmol/L (3.5-5.1)
[2021-05-08 21:07] VITALS: BP 152/91
== END 2021-05-08 21:08 | disposition home or self-care (01) ==
PROVIDERS: Family Medicine; Emergency Provider Emergency Medicine; PCP Family Medicine
DX: R41.0 Disorientation, unspecified (principal)
CPT/HCPCS: 36416; 71045; 71275; 80048; 80053; 82962; 83605; 84145; 85025; 96360; 96361; 99284; J7030; Q9967

== ENCOUNTER 2022-03-27 09:47 | Outpatient (CLI) | payer OTHER, MEDICAID, SELFPAY ==
--- NOTE | 2022-03-27 10:03 | MR_ITS ---
WS: [id number] MRI HEAD WITHOUT AND WITH CONTRAST WITH ATTENTION TO THE PITUITARY TECHNIQUE: Sagittal T1, T2 axial, T2 axial FLAIR, axial susceptibility weighted imaging, axial diffus ion weighted images, and coronal T2 images were obtained. Pre and post-T1 axial and post T1 coronal i mages. ADC and FSPGR images. High-resolution imaging of the pituitary. CLINICAL INFORMATION: HYPOPITUITARISM COMPARISON: None. FINDINGS: Small volume pituitary tissue for patient this age with partially empty sella. Pituitary ti ssue in the base of the sella with normal homogeneous enhancement. Normal optic chiasm and pituitary infundibulum. Normal cavernous sinuses and Meckel's cave. No evidence of intrasellar or suprasellar m ass. No evidence of restricted diffusion to suggest acute ischemia. Ventricular system and basal cisterns are patent. Mild supratentorial white matter changes nonspecific in a patient this age but can be see n with hypertension, diabetes, small vessel disease, and migraine headaches. Mild parenchymal volume loss. Normal posterior fossa. Normal vascular flow voids at the skull base. No extra-axial fluid steffany ections. No evidence of mass or mass effect. Mild mucosal thickening in the paranasal sinuses. Mild m ucosal thickening in the LEFT greater than RIGHT mastoid air cells. Normal posterior nasopharynx. No hemosiderin on susceptibly weighted images. No abnormal intracrania l enhancement. Normal dural venous sinuses. Incidental benign venous angioma LEFT posterior frontal l obe. MR/MR head wo/w con [id number] IMPRESSION: 1. Small volume pituitary gland for patient this age with partially empty sell a. Pituitary tissue base of the sella is normal in appearance with normal homog eneous enhancement. No evidence of intrasellar or suprasellar mass. 2. Normal optic chiasm and pituitary infundibulum. Normal cavernous sinuses an d Meckel's cave. 3. Mild supratentorial white matter changes nonspecific in a patient this age but can be seen with hypertension, diabetes, small vessel disease, and migraine headaches. Mild parenchymal volume loss. 4. No hemosiderin on susceptibly weighted images. 5. Benign enhancing venous angioma LEFT posterior frontal lobe. 6. No other suspicious findings.
[2022-03-27] MEDS: gadobenate dimeglumine 20 mL vial IV (11:16)
== END 2022-03-27 09:48 | disposition home or self-care (01) ==
LOC: RAD 09:48
PROVIDERS: PCP Family Medicine; Visit Provider Internal Medicine
DX: E23.0 Hypopituitarism (principal); Q28.3 Other malformations of cerebral vessels
CPT/HCPCS: 70553

== ENCOUNTER → 2022-11-13 15:01 | Outpatient (BNVA) | payer BC, SELFPAY | PROVIDERS: PCP Family Medicine; Visit Provider Student in an Organized Health Care Education/Training Program | DX: M17.11 Unilateral primary osteoarthritis, right knee (principal) | CPT/HCPCS: 73560; 73565 ==

== ENCOUNTER → 2022-11-23 12:11 | Outpatient (BNVA) | payer OTHER, BC, MEDICAID, SELFPAY | PROVIDERS: PCP Family Medicine; Referring Provider Family Medicine; Visit Provider Internal Medicine | DX: E03.9 Hypothyroidism, unspecified (principal); E23.0 Hypopituitarism; E23.6 Other disorders of pituitary gland | CPT/HCPCS: 36415; 80053; 84402; 84403; 84439; 84443; 84480; 85025; G0103 ==

== ENCOUNTER → 2022-12-22 08:15 | Day surgery (SDC) | payer OTHER, BC, MEDICAID, SELFPAY ==
[2022-12-22] MEDS: cosyntropin 0.25 mg SDV IVP (08:31)
[2022-12-22 08:34] VITALS: BP 145/83; PULSE 72; RESP 18; TEMP 36.4; O2SAT 95
[2022-12-22 09:49] LABS: Cosyntropin 30 Minute 18.31 mcg/dL
[2022-12-22 10:38] LABS: Cosyntropin 1 Hour 20.74 mcg/dL
[2022-12-22 10:38] LABS: Cosyntropin Baseline 8.98 mcg/dL
--- NOTE | 2022-12-22 10:41 | PC.NURSE ---
Cosyntropin stim test performed as ordered. Dr. Godoy's office notified that results are in [facility] for review.
== END ==
LOC: GILAB 08:17
PROVIDERS: PCP Family Medicine; Visit Provider Internal Medicine
DX: E23.6 Other disorders of pituitary gland (principal); E23.0 Hypopituitarism; E03.9 Hypothyroidism, unspecified; Z79.899 Other long term (current) drug therapy
CPT/HCPCS: 36415; 82533; 96374; J0834

== ENCOUNTER 2023-03-11 09:13 | Outpatient (CLI) | payer OTHER, MEDICAID, BC, SELFPAY ==
[2023-03-11 09:38] LABS: Basophils % 0.7 %; Eosinophils # 0.2 10^3/uL (0.0-0.8); Eosinophils % 3.7 %; Hematocrit 47.9 % (42.0-52.0); Hemoglobin 16.1 g/dL (11.7-16.6); Lymphocytes # 1.2 10^3/uL (0.8-4.8); Lymphocytes % 21.5 %; Mean Corpuscular HGB Conc 33.6 g/dL (30.0-36.0); Mean Corpuscular Hemoglobin 32.6 pg (28.0-34.0); Mean Platelet Volume 9.7 fL (7.4-10.4); Monocytes # 0.6 10^3/uL (0.2-0.9); Monocytes % 11.4 %; Neutrophils # 3.37 10^3/uL (1.8-7.7); Neutrophils % 62.1 %; Nucleated Red Blood Cells % 0 %; Platelet Count 225 10^3/cmm (130-400); Red Blood Count 4.94 10^6/uL (4.1-5.3); Red Cell Distribution Width 14.5 % (12.1-15.1); White Blood Count 5.4 10^3/uL (4.0-10.0)
[2023-03-11 10:15] LABS: Alanine Aminotransferase 26 U/L (0-41); Albumin Level 4.1 g/dL (3.5-5.2); Alkaline Phosphatase 51 U/L (40-130); Aspartate Amino Transferase 23 U/L (0-40); Blood Urea Nitrogen 14 mg/dL (6-20); Calcium 8.6 mg/dL (8.5-10.5); Carbon Dioxide 24 mmol/L (22-29); Chloride 99 mmol/L (98-107); Free T4 Free Thyroxine 0.89 ng/dL (0.82-1.77); Globulin 2.7 g/dL (1.3-4.6); Glomerular Filtration Rate 101.5 mL/min (90-130); Glucose 132 mg/dL (65-115); Osmolality Calculated 276 mOsm/kg (285-295); Sodium 132 mmol/L (136-145); Thyroid Stimulating Hormone 0.18 uIU/mL (0.27-4.20); Total Bilirubin 0.7 mg/dL (0.15-1.2); Total Protein 6.8 g/dL (6.6-8.7)
[2023-03-11 10:26] LABS: Anion Gap 13.5 (5-19)
[2023-03-11 10:27] LABS: Potassium 4.5 mmol/L (3.5-5.1)
[2023-03-12 07:30] LABS: T3 Total 116 ng/dL (76-181)
== END 2023-03-11 09:14 | disposition home or self-care (01) ==
LOC: LAB 09:19
PROVIDERS: PCP Family Medicine; Visit Provider Internal Medicine
DX: E29.1 Testicular hypofunction (principal); E03.9 Hypothyroidism, unspecified; E23.0 Hypopituitarism; E23.6 Other disorders of pituitary gland
CPT/HCPCS: 36415; 80053; 84403; 84439; 84443; 84480; 85025

== ENCOUNTER 2023-04-01 14:45 | Outpatient (CLI) | payer OTHER, MEDICAID, BC, SELFPAY ==
[2023-04-01 16:22] LABS: Free T4 Free Thyroxine 0.89 ng/dL (0.82-1.77); Testosterone Total 986.6 ng/dL (193-740)
== END 2023-04-01 14:46 | disposition home or self-care (01) ==
LOC: LAB 14:55
PROVIDERS: PCP Family Medicine; Visit Provider Internal Medicine
DX: E23.0 Hypopituitarism (principal); E03.9 Hypothyroidism, unspecified; E23.6 Other disorders of pituitary gland
CPT/HCPCS: 36415; 84403; 84439; 84443

== ENCOUNTER 2023-05-06 10:27 | Outpatient (CLI) | payer OTHER, MEDICAID, BC, SELFPAY ==
[2023-05-06 10:50] LABS: Basophils % 0.5 %; Eosinophils # 0.2 10^3/uL (0.0-0.8); Eosinophils % 3.8 %; Hematocrit 48.6 % (37-53); Lymphocytes # 1.3 10^3/uL (0.8-4.8); Mean Corpuscular HGB Conc 34.4 g/dL (30-55); Mean Corpuscular Hemoglobin 33.4 pg (27-33); Mean Corpuscular Volume 97.2 fl (82-101); Mean Platelet Volume 9.7 fL (7.4-10.4); Monocytes # 0.8 10^3/uL (0.2-0.9); Monocytes % 12.4 %; Neutrophils % 62.1 %; Nucleated Red Blood Cells % 0 %; Platelet Count 225 10^3/cmm (157-399); White Blood Count 6.28 10^3/uL (3.29-11.43)
[2023-05-06 11:25] LABS: Testosterone Total 879.7 ng/dL (193-740)
[2023-05-13 13:43] LABS: IGF1 LC/MS 110 ng/mL (50-317); Z Score (Male) -0.5 SD (-2.0 - +2.0)
== END 2023-05-06 10:28 | disposition home or self-care (01) ==
PROVIDERS: PCP Family Medicine; Visit Provider Internal Medicine
DX: E23.0 Hypopituitarism (principal); E03.9 Hypothyroidism, unspecified; E23.6 Other disorders of pituitary gland
CPT/HCPCS: 36415; 83520; 84305; 84403; 85025

== ENCOUNTER 2023-09-10 15:36 | Outpatient (CLI) | payer OTHER, BC, MEDICAID, SELFPAY ==
[2023-09-10 16:40] LABS: Estmated Average Glucose 105; Hemoglobin A1C 5.3 % (4.0-6.0)
[2023-09-10 16:47] LABS: Alanine Aminotransferase 50 U/L (0-41); Albumin Level 4.4 g/dL (3.5-5.2); Alkaline Phosphatase 65 U/L (40-130); Anion Gap 17.5 (5-19); Aspartate Amino Transferase 26 U/L (0-40); Blood Urea Nitrogen 17 mg/dL (6-20); Calcium 9.4 mg/dL (8.5-10.5); Carbon Dioxide 24 mmol/L (22-29); Chloride 99 mmol/L (98-107); Cholesterol 201 mg/dL (0-200); Globulin 3.4 g/dL (1.3-4.6); Glomerular Filtration Rate 101.1 mL/min (90-130); Glucose 96 mg/dL (65-115); HDL Cholesterol 30 mg/dL (60-100); LDL Cholesterol Calculated 147 mg/dL (50-129); Osmolality Calculated 283 mOsm/kg (285-295); Potassium 4.5 mmol/L (3.5-5.1); Sodium 136 mmol/L (136-145); Total Bilirubin 1.1 mg/dL (0.15-1.2); Total Protein 7.8 g/dL (6.6-8.7); Triglycerides 118 mg/dL (0-150)
[2023-09-10 16:57] LABS: Creatinine Urine, Random 126 mg/dL (39-259); Microalbum Creatinine Ratio Ur 8 mg/dL (0-20); Microalbumin Random Urine 1 ug/dL (0-20)
== END 2023-09-10 15:37 | disposition home or self-care (01) ==
LOC: LAB 15:37
PROVIDERS: PCP Family Medicine; Visit Provider Internal Medicine
DX: E23.0 Hypopituitarism (principal); E23.6 Other disorders of pituitary gland; E03.9 Hypothyroidism, unspecified
CPT/HCPCS: 36415; 80053; 80061; 82044; 83036; 83520

== ENCOUNTER → 2023-09-20 08:25 | Outpatient (BNVA) | payer OTHER, BC, MEDICAID, SELFPAY | PROVIDERS: PCP Family Medicine; Visit Provider Internal Medicine | DX: E23.0 Hypopituitarism (principal); E03.9 Hypothyroidism, unspecified | CPT/HCPCS: 36415; 84305; 84403; 84439; 85025 ==

== ENCOUNTER 2023-11-23 15:17 | Outpatient (CLI) | payer OTHER, SELFPAY ==
[2023-11-23 16:24] LABS: Free T4 Free Thyroxine 1.01 ng/dL (0.82-1.77)
[2023-11-24 09:48] LABS: Alanine Aminotransferase 41 U/L (0-41); Albumin Level 4.4 g/dL (3.5-5.2); Alkaline Phosphatase 59 U/L (40-130); Aspartate Amino Transferase 25 U/L (0-40); Blood Urea Nitrogen 14 mg/dL (6-20); Calcium 9.3 mg/dL (8.5-10.5); Carbon Dioxide 23 mmol/L (22-29); Chloride 101 mmol/L (98-107); Chol HDL Ratio 5.48 mg/dL (1.0-5.00); Cholesterol 181 mg/dL (0-200); Globulin 3.1 g/dL (1.3-4.6); Glomerular Filtration Rate 101.1 mL/min (90-130); Glucose 85 mg/dL (65-115); HDL Cholesterol 33 mg/dL (60-100); LDL Cholesterol Calculated 128 mg/dL (50-129); LDL HDL Ratio 3.88 RATIO (0.00-3.22); Osmolality Calculated 278 mOsm/kg (285-295); Sodium 134 mmol/L (136-145); Total Bilirubin 0.4 mg/dL (0.15-1.2); Total Protein 7.5 g/dL (6.6-8.7); Triglycerides 98 mg/dL (0-150)
[2023-11-25 06:35] LABS: T3 Total 155 ng/dL (76-181)
== END 2023-11-23 15:18 | disposition home or self-care (01) ==
LOC: LAB 15:23
PROVIDERS: PCP Family Medicine; Visit Provider Internal Medicine
DX: E03.9 Hypothyroidism, unspecified (principal); E29.1 Testicular hypofunction; E27.40 Unspecified adrenocortical insufficiency; E23.0 Hypopituitarism; Z79.899 Other long term (current) drug therapy
CPT/HCPCS: 36415; 80053; 80061; 84439; 84480

== ENCOUNTER 2023-12-17 08:21 | Outpatient (CLI) | payer OTHER, SELFPAY ==
[2023-12-17 08:43] LABS: Basophils % 0.6 %; Eosinophils # 0.1 10^3/uL (0.0-0.8); Eosinophils % 2.8 %; Hematocrit 44.1 % (37-53); Lymphocytes # 1.3 10^3/uL (0.8-4.8); Lymphocytes % 26.4 %; Mean Corpuscular HGB Conc 34.5 g/dL (30-55); Mean Corpuscular Volume 95.9 fl (82-101); Mean Platelet Volume 9.6 fL (7.4-10.4); Monocytes # 0.8 10^3/uL (0.2-0.9); Monocytes % 15.4 %; Neutrophils # 2.76 10^3/uL (1.8-7.7); Neutrophils % 54.4 %; Nucleated Red Blood Cells % 0 %; Platelet Count 193 10^3/cmm (157-399); White Blood Count 5.07 10^3/uL (3.29-11.43)
[2023-12-17 09:07] LABS: Prostate Specific Antigen Scr 1.19 ng/mL (0-4); Testosterone Total 578.8 ng/dL (193-740)
== END 2023-12-17 08:22 | disposition home or self-care (01) ==
LOC: LAB 08:23
PROVIDERS: PCP Family Medicine; Visit Provider Internal Medicine
DX: E29.1 Testicular hypofunction (principal); E03.9 Hypothyroidism, unspecified; E23.0 Hypopituitarism; E27.40 Unspecified adrenocortical insufficiency
CPT/HCPCS: 36415; 84403; 85025; G0103

== ENCOUNTER 2024-03-06 09:59 | Outpatient (CLI) | payer OTHER, SELFPAY ==
[2024-03-06 10:40] LABS: Basophils % 0.6 %; Eosinophils # 0.3 10^3/uL (0.0-0.8); Eosinophils % 5.1 %; Hematocrit 47.3 % (37-53); Lymphocytes # 1.4 10^3/uL (0.8-4.8); Lymphocytes % 23.1 %; Mean Corpuscular Hemoglobin 33.5 pg (27-33); Mean Corpuscular Volume 98.3 fl (82-101); Mean Platelet Volume 9.8 fL (7.4-10.4); Monocytes # 0.8 10^3/uL (0.2-0.9); Monocytes % 13.3 %; Neutrophils # 3.58 10^3/uL (1.8-7.7); Neutrophils % 57.4 %; Nucleated Red Blood Cells % 0 %; Platelet Count 232 10^3/cmm (157-399); Red Blood Count 4.81 10^6/uL (3.85-5.65); Red Cell Distribution Width 14.7 % (12.1-15.1); White Blood Count 6.24 10^3/uL (3.29-11.43)
[2024-03-06 11:23] LABS: Alanine Aminotransferase 40 U/L (0-41); Albumin Level 4.1 g/dL (3.5-5.2); Alkaline Phosphatase 61 U/L (40-130); Anion Gap 13.7 (5-19); Aspartate Amino Transferase 26 U/L (0-40); Blood Urea Nitrogen 14 mg/dL (6-20); Calcium 8.8 mg/dL (8.5-10.5); Carbon Dioxide 25 mmol/L (22-29); Chloride 103 mmol/L (98-107); Chol HDL Ratio 4.32 mg/dL (1.0-5.00); Cholesterol 147 mg/dL (0-200); Free T4 Free Thyroxine 0.85 ng/dL (0.82-1.77); Globulin 3.5 g/dL (1.3-4.6); Glomerular Filtration Rate 101.1 mL/min (90-130); Glucose 109 mg/dL (65-115); HDL Cholesterol 34 mg/dL (60-100); LDL Cholesterol Calculated 102 mg/dL (50-129); Osmolality Calculated 285 mOsm/kg (285-295); Potassium 4.7 mmol/L (3.5-5.1); Sodium 137 mmol/L (136-145); Thyroid Stimulating Hormone 0.45 uIU/mL (0.27-4.20); Total Bilirubin 0.5 mg/dL (0.15-1.2); Total Protein 7.6 g/dL (6.6-8.7); Triglycerides 55 mg/dL (0-150)
[2024-03-07 10:04] LABS: T3 Total 108 ng/dL (76-181)
== END 2024-03-06 10:00 | disposition home or self-care (01) ==
LOC: LAB 10:00
PROVIDERS: PCP Family Medicine; Visit Provider Internal Medicine
DX: E29.1 Testicular hypofunction (principal); E03.9 Hypothyroidism, unspecified; E23.0 Hypopituitarism; E27.40 Unspecified adrenocortical insufficiency
CPT/HCPCS: 36415; 80053; 80061; 84403; 84439; 84443; 84480; 85025

== ENCOUNTER 2024-05-03 10:37 | Outpatient (CLI) | payer OTHER, SELFPAY ==
[2024-05-03 11:21] LABS: Basophils # 0.1 10^3/uL (0.0-0.1); Basophils % 0.9 %; Eosinophils # 0.3 10^3/uL (0.0-0.8); Hematocrit 48.7 % (37-53); Lymphocytes # 1.6 10^3/uL (0.8-4.8); Lymphocytes % 27.9 %; Mean Corpuscular HGB Conc 34.1 g/dL (30-55); Mean Corpuscular Hemoglobin 33.7 pg (27-33); Mean Corpuscular Volume 98.8 fl (82-101); Monocytes # 0.8 10^3/uL (0.2-0.9); Monocytes % 13.6 %; Neutrophils # 2.92 10^3/uL (1.8-7.7); Neutrophils % 52.2 %; Nucleated Red Blood Cells % 0 %; Platelet Count 209 10^3/cmm (157-399); Red Blood Count 4.93 10^6/uL (3.85-5.65); Red Cell Distribution Width 14.3 % (12.1-15.1); White Blood Count 5.59 10^3/uL (3.29-11.43)
[2024-05-03 11:59] LABS: Alanine Aminotransferase 41 U/L (0-41); Albumin Level 4.3 g/dL (3.5-5.2); Alkaline Phosphatase 64 U/L (40-130); Anion Gap 14.3 (5-19); Aspartate Amino Transferase 24 U/L (0-40); Blood Urea Nitrogen 12 mg/dL (6-20); Carbon Dioxide 24 mmol/L (22-29); Chloride 101 mmol/L (98-107); Chol HDL Ratio 5.33 mg/dL (1.0-5.00); Cholesterol 160 mg/dL (0-200); Free T4 Free Thyroxine 0.96 ng/dL (0.82-1.77); Globulin 3.1 g/dL (1.3-4.6); Glomerular Filtration Rate 100.7 mL/min (90-130); Glucose 123 mg/dL (65-115); HDL Cholesterol 30 mg/dL (60-100); LDL Cholesterol Calculated 118 mg/dL (50-129); LDL HDL Ratio 3.93 RATIO (0.00-3.22); Osmolality Calculated 281 mOsm/kg (285-295); Potassium 4.3 mmol/L (3.5-5.1); Sodium 135 mmol/L (136-145); Testosterone Total 681.8 ng/dL (193-740); Thyroid Stimulating Hormone 0.35 uIU/mL (0.27-4.20); Total Bilirubin 0.6 mg/dL (0.15-1.2); Total Protein 7.4 g/dL (6.6-8.7); Triglycerides 61 mg/dL (0-150)
[2024-05-03 12:38] LABS: Estradiol 54.4 pg/mL (7.63-42.6)
[2024-05-04 09:30] LABS: T3 Total 146 ng/dL (76-181)
== END 2024-05-03 10:38 | disposition home or self-care (01) ==
LOC: LAB 10:38
PROVIDERS: PCP Family Medicine; Visit Provider Internal Medicine
DX: E29.1 Testicular hypofunction (principal); E03.9 Hypothyroidism, unspecified; E27.40 Unspecified adrenocortical insufficiency; Z51.81 Encounter for therapeutic drug level monitoring; Z79.890 Hormone replacement therapy
CPT/HCPCS: 36415; 80053; 80061; 82670; 82672; 84403; 84439; 84443; 84480; 85025

== ENCOUNTER → 2024-05-08 13:00 | Outpatient (BNVA) | payer OTHER, SELFPAY | PROVIDERS: PCP Family Medicine; Visit Provider Internal Medicine | DX: E23.0 Hypopituitarism (principal) | CPT/HCPCS: 36415; 83036 ==

== ENCOUNTER 2024-08-17 10:37 | Outpatient (CLI) | payer OTHER, SELFPAY ==
[2024-08-17 11:46] LABS: Basophils % 0.5 %; Eosinophils # 0.2 10^3/uL (0.0-0.8); Eosinophils % 3.2 %; Hematocrit 47.8 % (37-53); Lymphocytes # 1.6 10^3/uL (0.8-4.8); Lymphocytes % 25.1 %; Mean Corpuscular HGB Conc 34.1 g/dL (30-55); Mean Corpuscular Hemoglobin 32.3 pg (27-33); Mean Corpuscular Volume 94.8 fl (82-101); Mean Platelet Volume 9.7 fL (7.4-10.4); Monocytes # 0.8 10^3/uL (0.2-0.9); Neutrophils # 3.64 10^3/uL (1.8-7.7); Neutrophils % 57.9 %; Nucleated Red Blood Cells % 0 %; Platelet Count 220 10^3/cmm (157-399); Red Blood Count 5.04 10^6/uL (3.85-5.65); Red Cell Distribution Width 13.9 % (12.1-15.1); White Blood Count 6.29 10^3/uL (3.29-11.43)
[2024-08-17 12:23] LABS: Alanine Aminotransferase 46 U/L (0-41); Albumin Level 4.3 g/dL (3.5-5.2); Alkaline Phosphatase 64 U/L (40-130); Aspartate Amino Transferase 37 U/L (0-40); Blood Urea Nitrogen 15 mg/dL (6-20); Calcium 9.7 mg/dL (8.5-10.5); Carbon Dioxide 26 mmol/L (22-29); Chloride 96 mmol/L (98-107); Chol HDL Ratio 5.84 mg/dL (1.0-5.00); Cholesterol 187 mg/dL (0-200); Free T4 Free Thyroxine 0.87 ng/dL (0.82-1.77); Globulin 2.8 g/dL (1.3-4.6); Glomerular Filtration Rate 100.7 mL/min (90-130); Glucose 119 mg/dL (65-115); HDL Cholesterol 32 mg/dL (60-100); LDL Cholesterol Calculated 132 mg/dL (50-129); LDL HDL Ratio 4.13 RATIO (0.00-3.22); Osmolality Calculated 278 mOsm/kg (285-295); Sodium 133 mmol/L (136-145); Testosterone Total 559.8 ng/dL (193-740); Thyroid Stimulating Hormone 0.59 uIU/mL (0.27-4.20); Total Bilirubin 0.6 mg/dL (0.15-1.2); Total Protein 7.1 g/dL (6.6-8.7); Triglycerides 115 mg/dL (0-150)
[2024-08-18 08:14] LABS: T3 Total 106 ng/dL (76-181)
== END 2024-08-17 10:38 | disposition home or self-care (01) ==
LOC: LAB 10:40
PROVIDERS: PCP Family Medicine; Visit Provider Internal Medicine
DX: E29.1 Testicular hypofunction (principal); E03.9 Hypothyroidism, unspecified; E27.40 Unspecified adrenocortical insufficiency
CPT/HCPCS: 36415; 80053; 80061; 84305; 84403; 84439; 84443; 84480; 85025

== ENCOUNTER 2024-11-20 09:36 | Outpatient (CLI) | payer OTHER, SELFPAY ==
[2024-11-20 10:37] LABS: Basophils % 0.7 %; Eosinophils # 0.2 10^3/uL (0.0-0.8); Hematocrit 47.9 % (37-53); Lymphocytes # 1.6 10^3/uL (0.8-4.8); Lymphocytes % 27.7 %; Mean Corpuscular Hemoglobin 33.3 pg (27-33); Mean Corpuscular Volume 97.8 fl (82-101); Mean Platelet Volume 9.7 fL (7.4-10.4); Monocytes # 0.8 10^3/uL (0.2-0.9); Neutrophils # 3.28 10^3/uL (1.8-7.7); Neutrophils % 55.3 %; Nucleated Red Blood Cells % 0 %; Platelet Count 215 10^3/cmm (157-399); Red Cell Distribution Width 14.4 % (12.1-15.1); White Blood Count 5.93 10^3/uL (3.29-11.43)
[2024-11-20 11:06] LABS: Alanine Aminotransferase 46 U/L (0-41); Albumin Level 4.4 g/dL (3.5-5.2); Alkaline Phosphatase 62 U/L (40-130); Anion Gap 13.3 (5-19); Aspartate Amino Transferase 32 U/L (0-40); Blood Urea Nitrogen 15 mg/dL (6-20); Carbon Dioxide 27 mmol/L (22-29); Chloride 98 mmol/L (98-107); Chol HDL Ratio 5.45 mg/dL (1.0-5.00); Cholesterol 169 mg/dL (0-200); Free T4 Free Thyroxine 0.77 ng/dL (0.82-1.77); Glomerular Filtration Rate 77.9 mL/min (90-130); Glucose 109 mg/dL (65-115); HDL Cholesterol 31 mg/dL (60-100); LDL Cholesterol Calculated 122 mg/dL (50-129); LDL HDL Ratio 3.94 RATIO (0.00-3.22); Osmolality Calculated 279 mOsm/kg (285-295); Potassium 4.3 mmol/L (3.5-5.1); Sodium 134 mmol/L (136-145); Testosterone Total 530.8 ng/dL (193-740); Thyroid Stimulating Hormone 1.37 uIU/mL (0.27-4.20); Total Bilirubin 0.4 mg/dL (0.15-1.2); Total Protein 7.4 g/dL (6.6-8.7); Triglycerides 78 mg/dL (0-150)
[2024-11-21 07:20] LABS: T3 Total 113 ng/dL (76-181)
== END 2024-11-20 09:37 | disposition home or self-care (01) ==
PROVIDERS: PCP Family Medicine; Visit Provider Internal Medicine
DX: R03.0 Elevated blood-pressure reading, without diagnosis of hypertension (principal); E29.1 Testicular hypofunction; E03.8 Other specified hypothyroidism; E27.40 Unspecified adrenocortical insufficiency
CPT/HCPCS: 36415; 80053; 80061; 84305; 84403; 84439; 84443; 84480; 85025

== ENCOUNTER 2025-02-20 13:50 | Emergency (ER) | payer OTHER, SELFPAY ==
[2025-02-20 13:51] VITALS: BP 147/94; PULSE 78; TEMP 36.4; O2SAT 96; BMI 32.8
--- NOTE | 2025-02-20 13:57 | ECG_ITS ---
[employer] Test Date: 2025-02-20 Pat Name: Dudley Burns Department: Room: Gender: Male Charger Tester: : 1970 Requested By: Adam Bateman Order Number: [id number] Ronal MD: Mei Lopez M.D. Measurements Intervals Lydia Rate: 84 P: 55 AL: 136 QRS: 11 QRSD: 87 T: 54 QT: 346 QTc: 411 Interpretive Statements SINUS RHYTHM POSSIBLE LEFT ATRIAL ENLARGEMENT [-0.1mV P-WAVE IN V1/V2] NONSPECIFIC T-WAVE ABNORMALITY No previous ECG available for comparison Electronically Signed On 02-20-2025 17:14:06 CDT by Mei Lopez M.D. [email or web address]
--- OUTSIDE RECORDS SUMMARY | 2025-02-20 13:57 | XMS_ITS | Encounter Summary ---
[facility] Organization 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
--- OUTSIDE RECORDS SUMMARY | 2025-02-20 13:57 | XMS_ITS | Encounter Summary ---
Author Organization [facility] Address [address] [place] [address] Care Team Providers Care Wildlife Biology Internship Name Role Phone Nathanael Dyer MD Primary Care Provider [phone] Encounter Details Date Type Department Care Team (Latest Contact Info) Description 09/28/2000 Outpatient Historical [facility] Tigre Ingram NO ADDRESS ON FILE Anxiety state, unspecified (Primary Dx) Social History Tobacco Use Types Packs/Day Years Used Date Smoking Tobacco: Never Assessed Sex and Gender Information Value Date Recorded Sex Assigned at Not on file 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
--- OUTSIDE RECORDS SUMMARY | 2025-02-20 13:57 | XMS_ITS | Clinical Summary ---
Author Organization [facility] Address [address] [place] [address] Phone Care Team Providers Care Steam Shovel Oiler Name Role Phone Nathanael Dyer MD Primary Care Provider [phone] Allergies Active Allergy Reactions Criticality Noted Date Comments Prednisone Hives High 12/10/2020 Medications ALPRAZolam (XANAX) 0.25 mg disintegrating tablet 1 mg. 06/29/20 18 Active venlafaxine (EFFEXOR XR) 75 mg Extended Release 24 hour capsule Take 75 mg by mouth daily. 12/04/19 21 Active venlafaxine (EFFEXOR XR) 75 mg Extended Release 24 hour capsule Take 75 mg by mouth daily. 12/04/19 21 Active thyroid, pork, ([place] Thyroid) 180 mg tabletIndications: Acquired hypothyroidism Take 1 Tablet (180 mg) by mouth daily. 90 Tablet 1 09/11/19 23 Active hydrocortisone (CORTEF) 10 mg tabletIndications: Low serum cortisol level TAKE 1 TABLET BY MOUTH IN THE MORNING THEN TAKE 1/2 TABLET BY MOUTH IN THE AFTERNOON TRIPLE THE DOSE FOR 3-5 DAYS IN CASE OF ACUTE ILLNESS. 135 Tablet 11/03/19 23 Active testosterone cypionate (DEPO-TESTOSTERONE ) 200 mg/mL OilIndications:Hyp ogonadism in male,Acquired hypothyroidism Inject 0.75 mL (150 mg) by intramuscular injection every 7 days. Inject 150 mg (0.75) weekly 7 mL 01/27/20 23 Active lisinopriL (PRINIVIL) 10 mg tablet Take 10 mg by mouth daily. 01/07/20 23 Active traMADoL (ULTRAM) 50 mg tablet TAKE 1 TO 2 TABLETS BY MOUTH THREE TIMES DAILY NEEDED 01/23/20 23 Active Syringe with Needle, Disp, (BD Luer-Sean Syringe) 3 mL 23 x 1 Syringe USE WITH TESTOSTERONE WEEKLY 24 Each 3 06/07/20 24 Active Active Problems Problem Noted Date Diagnosed Date Hypogonadism in male 05/19/2021 Acquired hypothyroidism 05/19/2021 Family History Medical History Relation Name Comments Osteoporosis Neg Hx Social History Tobacco Use Types Packs/Day Years Used Date Smoking Tobacco: Never Smokeless Tobacco: Never Tobacco Cessation:Counseling Given: Not Answered Alcohol Use Standard Drinks/Week Comments Yes 1 (1 standard drink = 0.6 oz pur e alcohol) Sex and Gender Information Value Date Recorded Sex Assigned at Not on file Legal Sex Male 5:04 AM RECRUITMENT AND OUTREACH ASSISTANT Gender Identity Not on file Sexual Orientation Not on file Last Filed Vital Signs Vital Sign Reading Time Taken Comments Blood Pressure 122/82 03/16/2023 3:40 PM CDT Pulse 63 09/02/2021 9:51 AM RECRUITMENT AND OUTREACH ASSISTANT Temperature 36.3 C (97.3 F) 01/30/2021 7:33 PM CDT Respiratory Rate 18 01/30/2021 10:39 PM CDT Oxygen Saturation - - Inhaled Oxygen Concentration - - Weight 102.1 kg (225 lb) 03/16/2023 3:40 PM CDT Height 182.9 cm (6') 03/16/2023 3:40 PM CDT Body Mass Index 30.52 03/16/2023 3:40 PM CDT Plan of Treatment Health Maintenance Due Date Last Done Comments DTAP/TDAP/TD VACCINES (1 - Tdap) 1989 HEPATITIS B VACCINES (1 of 3 - 19+ 3-dose series) 03/16 COLORECTAL SCREENING 2015 Colorectal Cancer Screening 2015 FIT-DNA Q 3 years 2015 FIT/FOBT Q 1 year 2015 Flex Sig/CT Colonography Q 5 years 2015 ZOSTER VACCINE (1 of 2) 2020 INFLUENZA VACCINE (#1) 2025 Insurance [employer] * Guarantor: DUDLEY SRINIVASAN Account Type Relation to Patient Date of Phone Billing Address Personal/Family [address] [place] [id number] RX BOYKIN PLANS (INTERNAL) [facility] Internal Plans RX EXPRESS SCRIP[employer] Express Care Teams Steam Shovel Oiler Relationship Specialty Start Date End Date Nathanael Dyer MD [address] [address] PCP - General 01/30/21
--- OUTSIDE RECORDS SUMMARY | 2025-02-20 13:57 | XMS_ITS | Encounter Summary ---
Author Organization [facility] Address [address] [place] [address] Care Team Providers Care Warper Fixer Name Role Phone Nathanael Dyer MD Primary Care Provider [phone] Encounter Details Date Type Department Care Team (Latest Contact Info) Description 09/30/2001 Outpatient Historical HIS [facility] Morgan Ledbetter MD [address] [place] [address] DEPRESSIVE DISORDER NEC (Primary Dx); OBSESSIVE-COMPULSIVE DIS Social History Tobacco Use Types Packs/Day Years Used Date Smoking Tobacco: Never Assessed Sex and Gender Information Value Date Recorded Sex Assigned at Not on file 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
--- OUTSIDE RECORDS SUMMARY | 2025-02-20 13:57 | XMS_ITS | Encounter Summary ---
Author Organization [facility] Address [address] [place] [address] Care Team Providers Care Coach Professional Athletes Name Role Phone Nathanael Dyer MD Primary Care Provider [phone] Encounter Details Date Type Department Care Team (Latest Contact Info) Description 01/14/2001 Outpatient Historical HIS [facility] Tigre Ingram NO ADDRESS ON FILE Anxiety state, unspecified (Primary Dx) Social History Tobacco Use Types Packs/Day Years Used Date Smoking Tobacco: Never Assessed Sex and Gender Information Value Date Recorded Sex Assigned at Not on file 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
--- OUTSIDE RECORDS SUMMARY | 2025-02-20 13:57 | XMS_ITS | Encounter Summary ---
Author Organization [facility] Address [address] [place] [address] Care Team Providers Care Wet Machine Cutter Name Role Phone Nathanael Dyer MD Primary Care Provider Encounter Details Date Type Department Care Team (Late st Contact Info) Description 12/10/2020 Ancillary Orders [facility] External Department [address] [place] [id number] 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 No / Unsure 12/10/2020 12:35 PM CDT documented as of this encounter Plan of Treatment Not on file documented as of this encounter Results * XR PRIOR STUDY (11/14/2020 12:00 AM CDT) Narrative 12/10/2020 12:53 PM CDT This exam was auto finalized to allow images to be scanned to PACS. External Provider [facility] DIAGNOSTIC IMAGING ORDERAB LES Final Result documented in this encounter Visit Diagnoses Diagnosis Pain Generalized pain Pain Generalized pain documented in this encounter Care Teams Wet Machine Cutter Relationship Specialty Start Date End Date Nathanael Dyer MD [address] [address] PCP - General Family Practice 01/10/21 documented as of this encounter
--- OUTSIDE RECORDS SUMMARY | 2025-02-20 13:57 | XMS_ITS | Encounter Summary ---
Author Organization [facility] Address [address] [place] [address] Care Team Providers Care Fire Safety Manager Name Role Phone Nathanael Dyer MD Primary Care Provider [phone] Encounter Details Date Type Department Care Team (Latest Contact Info) Description 05/04/2002 Outpatient Historical HIS [facility] Morgan Ledbetter MD [address] [place] [address] PANIC DISORDER (Primary Dx); GENERALIZED ANXIETY DIS Social History Tobacco Use Types Packs/Day Years Used Date Smoking Tobacco: Never Assessed Sex and Gender Information Value Date Recorded Sex Assigned at Not on file Legal Sex Male 3:25 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
--- OUTSIDE RECORDS SUMMARY | 2025-02-20 13:57 | XMS_ITS | Encounter Summary ---
Author Organization [facility] Address [address] [place] [address] Care Team Providers Care Criminal Investigator Name Role Phone Nathanael Dyer MD Primary Care Provider [phone] Encounter Details Date Type Department Care Team (Latest Contact Info) Description 03/16/2001 Outpatient Historical HIS [facility] Tigre Ingram NO ADDRESS ON FILE Spasm of muscle (Primary Dx); Generalized anxiety disorder Social History Tobacco Use Types Packs/Day Years Used Date Smoking Tobacco: Never Assessed Sex and Gender Information Value Date Recorded Sex Assigned at Not on file Legal Sex Male 3:25 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
--- OUTSIDE RECORDS SUMMARY | 2025-02-20 13:57 | XMS_ITS | Encounter Summary ---
Author Organization [facility] Address [address] [place] [address] Care Team Providers Care Torque Tester Name Role Phone Nathanael Dyer MD Primary Care Provider [phone] Encounter Details Date Type Department Care Team (Latest Contact Info) Description 11/04/2001 Outpatient Historical HIS [facility] Morgan Ledbetter MD [address] [place] [address] INT DERANGEMENT KNEE NOS (Primary Dx); JOINT PAIN-L/LEG Social History Tobacco Use Types Packs/Day Years Used Date Smoking Tobacco: Never Assessed Sex and Gender Information Value Date Recorded Sex Assigned at Not on file Legal Sex Male 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
--- OUTSIDE RECORDS SUMMARY | 2025-02-20 13:57 | XMS_ITS | Encounter Summary ---
Author Organization [facility] Address [address] [place] [address] Care Team Providers Care Health Type Technician Name Role Phone Nathanael Dyer MD Primary Care Provider [phone] Encounter Details Date Type Department Care Team (Latest Contact Info) Description 11/24/2004 Outpatient Historical 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
--- OUTSIDE RECORDS SUMMARY | 2025-02-20 13:57 | XMS_ITS | Encounter Summary ---
Author Organization [facility] Address [address] [place] [address] Care Team Providers Care Hospice Clinical Supervisor Name Role Phone Nathanael Dyer MD Primary Care Provider [phone] Encounter Details Date Type Department Care Team (Latest Contact Info) Description 03/20/2002 Outpatient Historical HIS [facility] Morgan Ledbetter MD [address] [place] [address] PANIC DISORDER (Primary Dx); ANXIETY STATE NOS Social History Tobacco Use Types Packs/Day Years Used Date Smoking Tobacco: Never Assessed Sex and Gender Information Value Date Recorded Sex Assigned at Not on file Legal Sex Male 3:25 AM RN ONCOLOGY CLINICAL Gender Identity Not on file Sexual Orientation Not on file documented as of this encounter Plan of Treatment Not on file documented as of this encounter Visit Diagnoses Diagnosis Panic disorder without agoraphobia- Primary Anxiety state, unspecified documented in this encounter Care Teams Hospice Clinical Supervisor Relationship Specialty Start Date End Date Nathanael Dyer MD [address] [place] [address] PCP - General Family Practice 01/10/21 documented as of this encounter
--- OUTSIDE RECORDS SUMMARY | 2025-02-20 13:57 | XMS_ITS | Encounter Summary ---
Author Organization [facility] Address [address] [place] [address] Care Team Providers Care Core Worker Name Role Phone Nathanael Dyer MD Primary Care Provider [phone] Encounter Details Date Type Department Care Team (Latest Contact Info) Description 04/25/2001 Outpatient Historical HIS [facility] Morgan Ledbetter MD [address] [place] [address] Anxiety state, unspecified (Primary Dx) Social History Tobacco Use Types Packs/Day Years Used Date Smoking Tobacco: Never Assessed Sex and Gender Information Value Date Recorded Sex Assigned at Not on file Legal Sex Male 3:25 AM ACID CONDENSER Gender Identity Not on file Sexual Orientation Not on file documented as of this encounter Plan of Treatment Not on file documented as of this encounter Visit Diagnoses Diagnosis Anxiety state, unspecified- Primary documented in this encounter Care Teams Core Worker Relationship Specialty Start Date End Date Nathanael Dyer MD [address] [place] [address] PCP - General Family Practice 01/10/21 documented as of this encounter
--- OUTSIDE RECORDS SUMMARY | 2025-02-20 13:57 | XMS_ITS | Encounter Summary ---
Author Organization [employer] [facility] Address [address] [place] [address] Care Team Providers Care Cabinet Assembler Name Role Phone Nathanael Dyer MD Primary Care Provider [phone] Encounter Details Date Type Department Care Team (Latest Contact Info) Description 02/17/2002 Outpatient Historical HIS [facility] Morgan Ledbetter MD [address] [place] [address] INT DERANGEMENT KNEE NOS (Primary Dx); ANXIETY STATE NOS Social History Tobacco Use Types Packs/Day Years Used Date Smoking Tobacco: Never Assessed Sex and Gender Information Value Date Recorded Sex Assigned at Not on file 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
--- OUTSIDE RECORDS SUMMARY | 2025-02-20 13:57 | XMS_ITS | Encounter Summary ---
Author Organization [facility] Address [address] [place] [address] Care Team Providers Care Lighting Fixture Installer Name Role Phone Nathanael Dyer MD Primary Care Provider [phone] Encounter Details Date Type Department Care Team (Latest Contact Info) Description 10/09/2002 Outpatient Historical HIS [facility] Morgan Ledbetter MD [address] [place] [address] INSOMNIA NEC (Primary Dx); GENERALIZED ANXIETY DIS Social History Tobacco Use Types Packs/Day Years Used Date Smoking Tobacco: Never Assessed Sex and Gender Information Value Date Recorded Sex Assigned at Not on file 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
--- OUTSIDE RECORDS SUMMARY | 2025-02-20 13:57 | XMS_ITS | Encounter Summary ---
Author Organization [facility] Address [address] [place] [address] Care Team Providers Care Human Resources Manager Name Role Phone Nathanael Dyer MD Primary Care Provider [phone] Encounter Details Date Type Department Care Team (Late st Contact Info) Description 12/10/2020 Ancillary Orders [facility] Orthopedics - Orthopedic [facility] [address] [place] [address] 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 No / Unsure 12/10/2020 12:35 PM CDT documented as of this encounter Plan of Treatment Not on file documented as of this encounter Visit Diagnoses Not on filedocumented in this encounter Care Teams Human Resources Manager Relationship Specialty Start Date End Date Nathanael Dyer MD [address] [address] PCP - General Family Practice 01/10/21 documented as of this encounter
--- OUTSIDE RECORDS SUMMARY | 2025-02-20 13:57 | XMS_ITS | Clinical Summary ---
Author Organization [facility] Address [address] [place] [address] Phone Care Team Providers Care Mail Deliverer Name Role Phone Nathanael Dyer MD Primary Care Provider [phone] Allergies Active Allergy Reactions Criticality Noted Date Comments Prednisone Hives High 12/10/2020 Medications ALPRAZolam (XANAX) 0.25 mg disintegrating tablet 1 mg. 8 Active thyroid, pork, (ARMOUR THYROID) 30 mg tablet 30 mg daily. 1 Active testosterone cypionate 200 mg/mL Kit 50 mg. 1 Active venlafaxine (EFFEXOR XR) 75 mg Extended Release 24 hour capsule Take 75 mg by mouth daily. 1 Active HYDROmorphone (DILAUDID) 4 mg tabletIndications:P ostoperative pain of left knee Take 1 Tablet (4 mg) by mouth every 4 hours as needed for Pain. Max Daily Amount: 24 mg 2 Tablet 1 Active oxyCODONE-acetamino phen (PERCOCET) 10-325 mg TabletIndications:S /P arthroscopic knee surgery Take 1 Tablet by mouth every 4 hours as needed for Pain, Severe. Max Daily Amount: 6 Tablets 42 Tablet 01/31/2021 12:07 PM CDT 1 Active diazePAM (VALIUM) 5 mg tabletIndications:S /P arthroscopic knee surgery Take 1 Tablet (5 mg) by mouth every 6 hours as needed for Anxiety. 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 Gender Identity Not on file Sexual Orientation Not on file Last Filed Vital Signs Vital Sign Reading Time Taken Comments Blood Pressure 135/81 01/30/2021 10:01 PM CDT Pulse 62 01/30/2021 10:39 PM CDT Temperature 36.3 C (97.3 F) 01/30/2021 7:33 PM CDT Respiratory Rate 18 01/30/2021 10:39 PM CDT Oxygen Saturation 96% 01/30/2021 10:39 PM CDT Inhaled Oxygen Concentration - - Weight 109.3 kg (241 lb) 01/31/2021 10:37 AM CDT Height 182.9 cm (6') 01/31/2021 10:37 AM CDT Body Mass Index 32.69 01/31/2021 10:37 AM CDT Plan of Treatment Health Maintenance Due Date Last Done Comments DTAP/TDAP/TD VACCINES (1 - Tdap) 1989 HEPATITIS B VACCINES (1 of 3 - 19+ 3-dose series) 03/16 COLORECTAL SCREENING 2015 Colorectal Cancer Screening 2015 FIT-DNA Q 3 years 2015 FIT/FOBT Q 1 year 2015 Flex Sig/CT Colonography Q 5 years 2015 ZOSTER VACCINE (1 of 2) 2020 INFLUENZA VACCINE (#1) 2025 Insurance [employer] [place] [id number] RX EXPRESS SCRIPTS Express RX BOYKIN PLANS (INTERNAL) [facility] Internal Plans Advance Directives For more information, please contact: [phone] * Full Code (Latest Code Status on File) Date Activated Date Inactivated Comments 01/30/2021 7:27 AM 01/30/2021 2:08 PM Care Teams Mail Deliverer Relationship Specialty Start Date End Date Nathanael Dyer MD [address] [place] [address] PCP - General Family Practice 01/10/21
--- OUTSIDE RECORDS SUMMARY | 2025-02-20 13:57 | XMS_ITS | Encounter Summary ---
Author Organization [facility] Address [address] [place] [address] Care Team Providers Care Dopster Name Role Phone Nathanael Dyer MD Primary Care Provider [phone] Encounter Details Date Type Department Care Team (Latest Contact Info) Description 11/21/2001 Outpatient Historical HIS [facility] Morgan Ledbetter MD [address] [place] [address] NONINFEC GASTROENTERIT NEC (Primary Dx); ANXIETY STATE NOS Social History Tobacco Use Types Packs/Day Years Used Date Smoking Tobacco: Never Assessed Sex and Gender Information Value Date Recorded Sex Assigned at Not on file 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
--- OUTSIDE RECORDS SUMMARY | 2025-02-20 13:57 | XMS_ITS | Encounter Summary ---
Author Organization [facility] Address [address] [place] [address] Care Team Providers Care English Horn Player Name Role Phone Nathanael Dyer MD Primary Care Provider [phone] Encounter Details Date Type Department Care Team (Latest Contact Info) Description 02/28/2002 Outpatient Historical HIS [facility] Morgan Ledbetter MD [address] [place] [address] SOMATIC DYSFUNCTION NEC (Primary Dx); PANIC DISORDER; LUMBAGO Social History Tobacco Use Types Packs/Day Years Used Date Smoking Tobacco: Never Assessed Sex and Gender Information Value Date Recorded Sex Assigned at Not on file 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
--- OUTSIDE RECORDS SUMMARY | 2025-02-20 13:57 | XMS_ITS | Encounter Summary ---
Author Organization [facility] Address [address] [place] [address] Care Team Providers Care Automobile Repossessor Name Role Phone Nathanael Dyer MD Primary Care Provider [phone] Encounter Details Date Type Department Care Team (Late st Contact Info) Description 12/10/2020 Ancillary Orders [facility] External Department [address] [place] [id number] 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 External Provider [facility] DIAGNOSTIC IMAGING ORDERAB LES Final Result documented in this encounter Visit Diagnoses Diagnosis Pain Generalized pain Pain Generalized pain documented in this encounter Care Teams Automobile Repossessor Relationship Specialty Start Date End Date Nathanael Dyer MD [address] [address] PCP - General Family Practice 01/10/21 documented as of this encounter
--- OUTSIDE RECORDS SUMMARY | 2025-02-20 13:57 | XMS_ITS | Encounter Summary ---
Author Organization [facility] Address [address] [place] [address] Care Team Providers Care Finance Clerk Name Role Phone Nathanael Dyer MD Primary Care Provider [phone] Encounter Details Date Type Department Care Team (Latest Contact Info) Description 11/01/2001 Outpatient Historical HIS [facility] oMrgan Ledbetter MD [address] [place] [address] SPRAIN OF KNEE & LEG NOS (Primary Dx) Social History Tobacco Use Types Packs/Day Years Used Date Smoking Tobacco: Never Assessed Sex and Gender Information Value Date Recorded Sex Assigned at Not on file 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
--- OUTSIDE RECORDS SUMMARY | 2025-02-20 13:57 | XMS_ITS | Encounter Summary ---
Author Organization [facility] Address [address] [place] [address] Care Team Providers Care Automatic Pinsetter Mechanic Name Role Phone Nathanael Dyer MD Primary Care Provider [phone] Encounter Details Date Type Department Care Team (Latest Contact Info) Description 07/21/2002 Outpatient Historical HIS [facility] Morgan Ledbetter MD [address] [place] [address] INT DERANGEMENT KNEE NOS (Primary Dx); DYSHIDROSIS; PANIC DISORDER Social History Tobacco Use Types Packs/Day Years Used Date Smoking Tobacco: Never Assessed Sex and Gender Information Value Date Recorded Sex Assigned at Not on file 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
--- OUTSIDE RECORDS SUMMARY | 2025-02-20 13:57 | XMS_ITS | Encounter Summary ---
Author Organization [facility] Address [address] [place] [address] Care Team Providers Care Wireless Manager Name Role Phone Nathanael Dyer MD Primary Care Provider [phone] Encounter Details Date Type Department Care Team (Latest Contact Info) Description 11/08/2001 Outpatient Historical HIS [facility] Morgan Ledbetter MD [address] [place] [address] SPRAIN OF KNEE & LEG NOS (Primary Dx) Social History Tobacco Use Types Packs/Day Years Used Date Smoking Tobacco: Never Assessed Sex and Gender Information Value Date Recorded Sex Assigned at Not on file 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
--- OUTSIDE RECORDS SUMMARY | 2025-02-20 13:57 | XMS_ITS | Encounter Summary ---
Author Organization [facility] Address [address] [place] [address] Care Team Providers Care Special Library Librarian Name Role Phone Nathanael Dyer MD Primary Care Provider Encounter Details Date Type Department Care Team (Latest Contact Info) Description 06/15/2001 Outpatient Historical HIS [facility] Morgan Ledbetter MD [address] [place] [address] BRONCHITIS NOS (Primary Dx); ANXIETY STATE NOS Social History Tobacco Use Types Packs/Day Years Used Date Smoking Tobacco: Never Assessed Sex and Gender Information Value Date Recorded Sex Assigned at Not on file 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
--- OUTSIDE RECORDS SUMMARY | 2025-02-20 13:57 | XMS_ITS | Encounter Summary ---
Author Organization [employer] [facility] [facility] Address [address] [place] [address] Care Team Providers Care Real Estate Assistant Name Role Phone Nathanael Dyer MD Primary Care Provider [phone] Encounter Details Date Type Department Care Team (Latest Contact Info) Description 10/12/2000 Outpatient Historical HIS [facility]re Ingram NO ADDRESS ON FILE Allergic rhinitis, cause unspecified (Primary Dx); Anxiety state, unspecified Social History Tobacco Use Types Packs/Day Years Used Date Smoking Tobacco: Never Assessed Sex and Gender Information Value Date Recorded Sex Assigned at Not on file Legal Sex Male 3: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
--- OUTSIDE RECORDS SUMMARY | 2025-02-20 13:57 | XMS_ITS | Encounter Summary ---
Author Organization [employer] [facility] Address [address] [place] [address] Care Team Providers Care Bleach Range Operator Name Role Phone Nathanael Dyer MD Primary Care Provider [phone] Encounter Details Date Type Department Care Team (Latest Contact Info) Description 12/19/2001 Outpatient Historical HIS [facility] Morgan Ledbetter MD [address] [place] [address] ANXIETY STATE NOS (Primary Dx) Social History Tobacco Use Types Packs/Day Years Used Date Smoking Tobacco: Never Assessed Sex and Gender Information Value Date Recorded Sex Assigned at Not on file 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
--- OUTSIDE RECORDS SUMMARY | 2025-02-20 13:57 | XMS_ITS | Encounter Summary ---
Author Organization [employer] [facility] Address [address] [place] [address] Care Team Providers Care Nurse Auditor Name Role Phone Nathanael Dyer MD Primary Care Provider [phone] Encounter Details Date Type Department Care Team (Latest Contact Info) Description 09/14/2000 Outpatient Historical HIS [facility] Tigre Ingram NO ADDRESS ON FILE Bronchitis, not specified as acute or chronic (Primary Dx); Other diseases of trachea and bronchus, not elsewhere classified; Anxiety state, unspecified Social History Tobacco Use Types Packs/Day Years Used Date Smoking Tobacco: Never Assessed Sex and Gender Information Value Date Recorded Sex Assigned at Not on file Legal Sex Male 3: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
--- OUTSIDE RECORDS SUMMARY | 2025-02-20 13:57 | XMS_ITS | Encounter Summary ---
Author Organization [facility] Address [address] [place] [address] Care Team Providers Care Buttermilk Drier Operator Name Role Phone Nathanael Dyer MD Primary Care Provider [phone] Encounter Details Date Type Department Care Team (Latest Contact Info) Description 09/01/2001 Outpatient Historical HIS [facility] Morgan Ledbetter MD [address] [place] [address] OBSESSIVE-COMPULSIVE DIS (Primary Dx); DEPRESSIVE DISORDER NEC Social History Tobacco Use Types Packs/Day Years Used Date Smoking Tobacco: Never Assessed Sex and Gender Information Value Date Recorded Sex Assigned at Not on file 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
[2025-02-20 14:16] LABS: Hematocrit 51.5 % (37-53); Hemoglobin 17.90 g/dL (11.27-16.99); Mean Corpuscular HGB Conc 34.8 g/dL (30-55); Mean Corpuscular Hemoglobin 33.0 pg (27-33); Mean Corpuscular Volume 95.0 fl (82-101); Nucleated Red Blood Cells % 0 %; Platelet Count 232 10^3/cmm (157-399); Red Blood Count 5.42 10^6/uL (3.85-5.65); White Blood Count 7.41 10^3/uL (3.29-11.43)
[2025-02-20 14:33] LABS: Alanine Aminotransferase 37 U/L (0-41); Albumin Level 4.3 g/dL (3.5-5.2); Alkaline Phosphatase 70 U/L (40-130); Anion Gap 16.2 (5-19); Aspartate Amino Transferase 25 U/L (0-40); Blood Urea Nitrogen 16 mg/dL (6-20); Calcium 9.9 mg/dL (8.5-10.5); Carbon Dioxide 24 mmol/L (22-29); Chloride 96 mmol/L (98-107); Creatinine Clr Calc Pharmacy 108.0585; Globulin 3.7 g/dL (1.3-4.6); Glucose 118 mg/dL (65-115); Osmolality Calculated 276 mOsm/kg (285-295); Potassium 4.2 mmol/L (3.5-5.1); Sodium 132 mmol/L (136-145); Total Protein 8.0 g/dL (6.6-8.7)
--- NOTE | 2025-02-20 14:53 | CTR_ITS ---
PROCEDURE INFORMATION: Exam: CT Head Without Contrast Exam date and time: 02/20/2025 3:03 PM Age: 54 years old Clinical indication: Pain; Headache not specified; PT has been having headaches that wrap around his head. Difficulty with vision. States the floor on the right side looks lower than the left. Elevated blood pressure, confusion. PT states he had a brain tumor that has resolved on its own. Hypopituitarism; Additional info: THOMAS TECHNIQUE: Imaging protocol: Computed tomography of the head without contrast. Radiation optimization: All CT scans at this facility use at least one of these dose optimization techniques: automated exposure control; mA and/or kV adjustment per patient size (includes targeted exams where dose is matched to clinical indication); or iterative reconstruction. COMPARISON: MR head wo/w con [id number] 03/27/2022 10:27 AM RADIATION DOSE METRICS: Total DLP (mGy-cm): 1162.38 FINDINGS: Brain: Normal. No hemorrhage. Unremarkable white matter. No mass effect. Cerebral ventricles: No ventriculomegaly. Paranasal sinuses: Visualized sinuses are unremarkable. No fluid levels. Mastoid air cells: Left mastoid air cells show underdevelopment. There is no evidence of mastoiditis. Bones: Unremarkable. No acute fracture. Soft tissues: Unremarkable. CT/CT head wo con* [id number] IMPRESSION: 1. Relatively hypoplastic left mastoid air cells. 2. Otherwise unremarkable noncontrast head CT. No etiology for the patient's symptoms is demonstrated.
--- NOTE | 2025-02-20 14:54 | W.ED.HA ---
HPI - Headache General: Chief Complaint: Headache Stated Complaint: high bp Time Seen by Provider: 02/20/25 14:44 Source: patient Mode of arrival: ambulatory Limitations: no limitations History of Present Illness: 54-year-old male states has been having high blood pressures over the last week. States he had increased his lisinopril from 30 mg to 40 mg still having high blood pressures. He states with blood pressure climbs a gets a headache and feels like he has a whooshing sensation he did take lisinopril before arrival he states improved rates his headache a 3 out of 10 denies any chest pain denies any vomiting or diarrhea. Associated symptoms: Deny chest pain, fever(s), nausea, rash or vomiting Related Data Home Medications ?Medication ?Instructions ?Recorded ?Confirmed acetaminophen 650 mg 1,300 mg PO PRN 11/14/20 12/18/24 tablet,extended release alprazolam 1 mg tablet 0.5 - 1 mg PO TID PRN Anxiety 11/14/20 12/18/24 venlafaxine 225 mg tablet,extended 225 mg PO DAILY 05/08/21 12/18/24 release 24 hr lisinopril 10 mg tablet 20 mg PO DAILY 05/08/24 12/18/24 Previous Rx's ?Medication ?Instructions ?Recorded cyclobenzaprine 10 mg tablet 10 mg PO TID PRN muscle spasm #15 02/12/21 tabs Right knee un base loader brace #1 ea 11/13/22 tramadol 100 mg tablet 100 mg PO Q4H PRN pain 3 days #18 11/13/22 tabs hydrocortisone 5 mg tablet 5 mg PO BID #180 tabs 12/29/22 hyaluronate sodium, stabilized 60 60 mg (3 mL) intra-articular ONCE 02/26/23 mg/3 mL intra-articular syringe #3 mL (Durolane) ondansetron HCl 8 mg tablet See Rx Instructions .Route 07/07/23 .COMPLEX #7 tabs thyroid (pork) 90 mg tablet See Rx Instructions .Route 01/04/24 (Randolph Thyroid) .COMPLEX #26 tabs pantoprazole 20 mg tablet,delayed See Rx Instructions .Route 03/28/24 release .COMPLEX #30 tabs Humatrope (somatropin) 0.2 mg SUBCUT DAILY #1 ea 05/08/24 syringe with needle 3 mL 23 x 1 #100 ea 07/27/24 (BD Luer-Sean Syringe) needle (disp) 18 G 18 gauge x 1 #100 ea 08/23/24 (BD Regular Bevel Edgecomb) syringe with needle 3 mL 25 gauge #100 ea 08/23/24 x 1 (CareTouch Luer Lock Syringe with needle) testosterone cypionate 200 mg/mL 100 mg (0.5 mL) IM Q10D 3 months 01/25/25 intramuscular oil #1 mL thyroid (pork) 180 mg tablet See Rx Instructions .Route 01/29/25 (Randolph Thyroid) .COMPLEX #90 tabs Allergies Allergy/AdvReac Type Severity Reaction Status Date / Time prednisone Allergy ALGY-Hives Verified 02/20/25 14:02 hydrocortisone AdvReac Unknown Verified 02/20/25 14:02 Review of Systems Const: Denies: fever(s), chills, body aches or change in appetite Eyes: Denies: blurry vision or eye discomfort ENMT: Denies: throat pain or dental pain Card: Denies: chest pain Resp: Denies: dyspnea GI: Denies: abdominal pain, nausea, vomiting or diarrhea Musc: Denies: neck pain or back pain Skin/Breast: Denies: rash Neuro: Reports: headache(s) PFSH ED PFSH: Medical History Right ACL tear Social History Smoking and tobacco/nicotine status: never used tobacco/nicotine Physical Exam Const: COMMON NORMALS: no acute distress, patient oriented x3 and healthy appearing HENMT: COMMON NORMALS: normocephalic and atraumatic HEAD & SCALP: normocephalic and atraumatic Eye: COMMON NORMALS: Equal, round and reactive pupils present and EOMs intact bilaterally PUPIL: Yes Equal, round and reactive pupils present Neck/C-Spine: COMMON NORMALS: full ROM and supple Chest: COMMONS NORMALS: normal inspection of the chest Resp: COMMON NORMALS: normal respiratory effort Cardio: COMMON NORMALS: regular rate, regular rhythm and No murmurs present (Cardio) RATE: regular rate RHYTHM: regular rhythm Extremity: COMMON NORMALS: normal to inspection and full ROM Neuro: COMMON NORMALS: patient oriented x3, moves all extremities and no focal motor deficits Psych: COMMON NORMALS: mental status grossly normal, Normal thought process present and cooperative THOUGHT PROCESS: Normal thought process present Skin: COMMON NORMALS: no rashes or lesions noted and no wounds GENERAL SKIN EXAM: no rashes or lesions noted Course Vital Signs: Vital signs: Vital Signs Temperature 97.5 F L 02/20/25 13:51 Pulse Rate 78 02/20/25 13:51 Blood Pressure 147/94 02/20/25 13:51 Pulse Oximetry 96 02/20/25 13:51 Oxygen Delivery Me thod Room Air 02/20/25 13:51 MDM - Headache Medical Decision Making Patient presents with hypertension has had a mild headache headache here is improved head CT was normal he has a follow-up with his PCP tomorrow he is to discuss his hypertension with him then. Return if worsening Medical Records I reviewed the patient's medical records. Lab Data I reviewed the patient's lab results. 02/20/25 14:09 02/20/25 14:[address] 02/20/25 14:53 IMPRESSION: 1. Relatively hypoplastic left mastoid air cells. 2. Otherwise unremarkable noncontrast head CT. No etiology for the patient's symptoms is demonstrated. Laboratory Results WBC 7.41 10^3/uL (3.29-11.43) 02/20/25 14:09 RBC 5.42 10^6/uL (3.85-5.65) 02/20/25 14:09 Hgb 17.90 g/dL (11.27-16.99) H 02/20/25 14:09 Hct 51.5 % (37-53) 02/20/25 14:09 MCV 95.0 fl (82-101) 02/20/25 14:09 MCH 33.0 pg (27-33) 02/20/25 14:09 MCHC 34.8 g/dL (30-55) 02/20/25 14:09 RDW 14.3 % (12.1-15.1) 02/20/25 14:09 Plt Count 232 10^3/cmm (157-399) 02/20/25 14:09 MPV 9.7 fL (7.4-10.4) 02/20/25 14:09 Neut % (Auto) 68.7 % 02/20/25 14:09 Lymph % (Auto) 19.0 % 02/20/25 14:09 Wythe % (Auto) 10.3 % 02/20/25 14:09 Eos % (Auto) 1.3 % 02/20/25 14:09 Baso % (Auto) 0.4 % 02/20/25 14:09 Neut # (Auto) 5.09 10^3/uL (1.8-7.7) 02/20/25 14:09 Lymph # (Auto) 1.4 10^3/uL (0.8-4.8) 02/20/25 14:09 Wythe # (Auto) 0.8 10^3/uL (0.2-0.9) 02/20/25 14:09 Eos # (Auto) 0.1 10^3/uL (0.0-0.8) 02/20/25 14:09 Baso # (Auto) 0.0 10^3/uL (0.0-0.1) 02/20/25 14:09 Nucleated RBC % (auto) 0 % 02/20/25 14:09 Nucleated RBCs # 0.0 /100WBC 02/20/25 14:09 Sodium 132 mmol/L (136-145) L 02/20/25 14:09 Potassium 4.2 mmol/L (3.5-5.1) 02/20/25 14:09 Chloride 96 mmol/L (98-107) L 02/20/25 14:09 Carbon Dioxide 24 mmol/L (22-29) 02/20/25 14:09 Anion Gap 16.2 (5-19) 02/20/25 14:09 BUN 16 mg/dL (6-20) 02/20/25 14:09 Creatinine 1.0 mg/dL (0.7-1.2) 02/20/25 14:09 GFR Calculation 77.9 mL/min (90-130) L 02/20/25 14:09 Glucose 118 mg/dL (65-115) H 02/20/25 14:09 Calculated Osmolality 276 mOsm/kg (285-295) L 02/20/25 14:09 Calcium 9.9 mg/dL (8.5-10.5) 02/20/25 14:09 Total Bilirubin 0.8 mg/dL (0.15-1.2) 02/20/25 14:09 AST 25 U/L (0-40) 02/20/25 14:09 ALT 37 U/L (0-41) 02/20/25 14:09 Alkaline Phosphatase 70 U/L (40-130) 02/20/25 14:09 Total Protein 8.0 g/dL (6.6-8.7) 02/20/25 14:09 Albumin 4.3 g/dL (3.5-5.2) 02/20/25 14:09 Globulin 3.7 g/dL (1.3-4.6) 02/20/25 14:09 All radiology interpretation(s) finalized by discharge EKG Data EKG 1: I personally reviewed and interpreted this EKG as follows: EKG interpretation date: 02/20/25 EKG interpretation time: 13:57 Interpretation: nsr hr [address] elevation qrs 87 qtc 388 Discharge Plan Discharge Patient Disposition: Home Clinical Impression: Headache, Hypertension Condition: Stable Prescriptions: No Action lisinopril 10 mg tablet 20 mg PO DAILY hydrocortisone 5 mg tablet 5 mg PO BID Qty: 180 0RF Humatrope 5 (15 unit) mg recon soln 0.2 mg SUBCUT DAILY Qty: 1 3RF (DME) CareTouch Luer Lock Syr-needle 3 mL 25 gauge x 1 syringe See Rx Instructions .Route Qty: 100 2RF Rx Instructions: As directed (DME) needle (disp) 18 G [BD Regular Bevel Edgecomb] 18 gauge x 1 needle See Rx Instructions .Route Qty: 100 2RF Rx Instructions: As directed tramadol 100 mg tablet 100 mg PO Q4H PRN (Reason: pain) 3 Days Qty: 18 0RF Rx Instructions: DNExceed 4 doses/24h (DME) Right knee un base loader brace See Rx Instructions .Route .MEDSUPPLY Qty: 1 0RF Rx Instructions: As directed Durolane 60 mg/3 mL syringe 60 mg intra-articular ONCE Qty: 3 0RF ondansetron HCl 8 mg tablet See Rx Instructions .ROUTE .COMPLEX Qty: 7 0RF Dose Instruction: TAKE 1 TABLET BY MOUTH EVERY 8 HOURS NEEDED FOR NAUSEA AND VOMITING Rx Instructions: TAKE 1 TABLET BY MOUTH EVERY 8 HOURS NEEDED FOR NAUSEA AND VOMITING thyroid (pork) [Randolph Thyroid] 90 mg tablet See Rx Instructions .ROUTE .COMPLEX Qty: 26 3RF Dose Instruction: TAKE 1 TAB TWICE WEEKLY ON MONDAYS AND THURSDAYS Rx Instructions: TAKE 1 TAB TWICE WEEKLY ON MONDAYS AND THURSDAYS pantoprazole 20 mg tablet,delayed release (DR/EC) See Rx Instructions .ROUTE .COMPLEX Qty: 30 0RF Dose Instruction: TAKE 1 TABLET BY MOUTH EVERY DAY Rx Instructions: TAKE 1 TABLET BY MOUTH EVERY DAY (DME) BD Luer-Sean Syringe 3 mL 23 x 1 syringe See Rx Instructions .Route Qty: 100 3RF Rx Instructions: As directed testosterone cypionate 200 mg/mL oil 100 mg IM Q10D 90 Days Qty: 1 5RF Randolph Thyroid 180 mg tablet See Rx Instructions .ROUTE .COMPLEX Qty: 90 2RF Dose Instruction: TAKE 1/2 TABLET BY MOUTH TWICE A DAY Rx Instructions: TAKE 1/2 TABLET BY MOUTH TWICE A DAY alprazolam 1 mg tablet 0.5 - 1 mg PO TID PRN (Reason: Anxiety) acetaminophen [Tylenol Arthritis] 650 mg Tablet Extended Release 1,300 mg PO PRN cyclobenzaprine 10 mg tablet 10 mg PO TID PRN (Reason: muscle spasm) Qty: 15 1RF venlafaxine 225 mg Tablet Extended Release 24hr 225 mg PO DAILY Discharge Orders: Discharge ED (Routine); Ordered 02/20/25 Ordered By: Adam Bateman Referrals: Nathanael Dyer MD [Primary Care Provider, Family Practice] Discharge Diet: Advance as tolerated Discharge Activity: Resume usual activity Patient Instructions: Hypertension (ED), General Headache (ED) Print Language: Monegasque Coding Level of Care Code ED Artificial Log Machine Operator for Wilver Luna
[2025-02-20 15:49] VITALS: BP 135/87; PULSE 62; O2SAT 95
== END 2025-02-20 15:51 | disposition home or self-care (01) ==
PROVIDERS: Emergency Provider Emergency Medicine; PCP Family Medicine
DX: R51.9 Headache, unspecified (principal); I10 Essential (primary) hypertension
CPT/HCPCS: 36415; 70450; 80053; 85025; 93005; 96372; 99284; J1885; J9999

== ENCOUNTER 2025-03-12 10:23 | Outpatient (CLI) | payer OTHER, SELFPAY ==
[2025-03-12 11:22] LABS: Hematocrit 45.6 % (37-53); Hemoglobin 15.60 g/dL (11.27-16.99); Mean Corpuscular HGB Conc 34.2 g/dL (30-55); Mean Corpuscular Hemoglobin 32.4 pg (27-33); Mean Corpuscular Volume 94.6 fl (82-101); Nucleated Red Blood Cells % 0 %; Platelet Count 235 10^3/cmm (157-399); Red Blood Count 4.82 10^6/uL (3.85-5.65); White Blood Count 5.31 10^3/uL (3.29-11.43)
[2025-03-12 11:56] LABS: Alanine Aminotransferase 28 U/L (0-41); Albumin Level 4.0 g/dL (3.5-5.2); Alkaline Phosphatase 60 U/L (40-130); Anion Gap 13.0 (5-19); Aspartate Amino Transferase 20 U/L (0-40); Blood Urea Nitrogen 11 mg/dL (6-20); Calcium 8.9 mg/dL (8.5-10.5); Carbon Dioxide 26 mmol/L (22-29); Chloride 99 mmol/L (98-107); Cholesterol 137 mg/dL (0-200); Free T4 Free Thyroxine 0.78 ng/dL (0.82-1.77); Globulin 3.0 g/dL (1.3-4.6); Glucose 100 mg/dL (65-115); HDL Cholesterol 30 mg/dL (60-100); Osmolality Calculated 275 mOsm/kg (285-295); Potassium 5.0 mmol/L (3.5-5.1); Sodium 133 mmol/L (136-145); Thyroid Stimulating Hormone 0.50 uIU/mL (0.27-4.20); Total Protein 7.0 g/dL (6.6-8.7); Triglycerides 77 mg/dL (0-150)
== END 2025-03-12 10:24 | disposition home or self-care (01) ==
PROVIDERS: PCP Family Medicine; Visit Provider Internal Medicine
DX: E03.8 Other specified hypothyroidism (principal); E27.40 Unspecified adrenocortical insufficiency; E23.0 Hypopituitarism; E23.6 Other disorders of pituitary gland
CPT/HCPCS: 36415; 80053; 80061; 84305; 84403; 84439; 84443; 84480; 85025

== ENCOUNTER 2025-05-04 10:03 | Outpatient (CLI) | payer OTHER, SELFPAY ==
[2025-05-04 11:01] LABS: Hematocrit 45.8 % (37-53); Hemoglobin 15.60 g/dL (11.27-16.99); Mean Corpuscular HGB Conc 34.1 g/dL (30-55); Mean Corpuscular Hemoglobin 32.7 pg (27-33); Mean Corpuscular Volume 96.0 fl (82-101); Nucleated Red Blood Cells % 0 %; Platelet Count 230 10^3/cmm (157-399); Red Blood Count 4.77 10^6/uL (3.85-5.65); White Blood Count 5.84 10^3/uL (3.29-11.43)
[2025-05-04 11:34] LABS: Alanine Aminotransferase 35 U/L (0-41); Albumin Level 4.3 g/dL (3.5-5.2); Alkaline Phosphatase 63 U/L (40-130); Anion Gap 15.3 (5-19); Aspartate Amino Transferase 27 U/L (0-40); Blood Urea Nitrogen 15 mg/dL (6-20); Calcium 9.3 mg/dL (8.5-10.5); Carbon Dioxide 24 mmol/L (22-29); Chloride 101 mmol/L (98-107); Cholesterol 149 mg/dL (0-200); Free T4 Free Thyroxine 0.74 ng/dL (0.82-1.77); Globulin 3.3 g/dL (1.3-4.6); Glucose 105 mg/dL (65-115); HDL Cholesterol 31 mg/dL (60-100); Osmolality Calculated 283 mOsm/kg (285-295); Potassium 4.3 mmol/L (3.5-5.1); Sodium 136 mmol/L (136-145); Thyroid Stimulating Hormone 1.13 uIU/mL (0.27-4.20); Total Protein 7.6 g/dL (6.6-8.7); Triglycerides 65 mg/dL (0-150)
== END 2025-05-04 10:04 | disposition home or self-care (01) ==
LOC: LAB 10:05
PROVIDERS: PCP Family Medicine; Visit Provider Internal Medicine
DX: E03.8 Other specified hypothyroidism (principal); E23.0 Hypopituitarism; E23.6 Other disorders of pituitary gland; E27.40 Unspecified adrenocortical insufficiency
CPT/HCPCS: 80053; 80061; 84305; 84403; 84439; 84443; 84480; 85025

== ENCOUNTER → 2025-06-12 10:03 | Outpatient (BNVA) | payer OTHER, SELFPAY | PROVIDERS: PCP Family Medicine; Visit Provider Internal Medicine Endocrinology, Diabetes & Metabolism | DX: Z51.81 Encounter for therapeutic drug level monitoring (principal); E27.40 Unspecified adrenocortical insufficiency; E23.0 Hypopituitarism; E03.8 Other specified hypothyroidism; Z79.890 Hormone replacement therapy | CPT/HCPCS: 36415; 82533; 84403; 84439; 84443; 84480 ==

== ENCOUNTER 2025-08-08 12:41 | Outpatient (CLI) | payer OTHER, SELFPAY | END 2025-08-08 12:42 | disposition home or self-care (01) | PROVIDERS: PCP Family Medicine; Visit Provider Internal Medicine | DX: E03.8 Other specified hypothyroidism (principal); E27.40 Unspecified adrenocortical insufficiency; E23.0 Hypopituitarism; E23.6 Other disorders of pituitary gland | CPT/HCPCS: 84403 ==